=== PATIENT | female | born 1945 | race Caucasian/White ===

== ENCOUNTER 2016-06-24 07:15 | Day surgery (SDC) | payer MEDICARE ==
[~2016-06-24] VITALS: Ht 167.6 cm; Wt 89.1 kg
[2016-06-24] VITALS (9 sets, daily range): BP systolic 97–160; BP diastolic 35–73; PULSE 72–90; RESP 18–20; TEMP 97.7–98.3; O2SAT 92–100
[~2016-06-24 07:15] MED LIST: ECOT81TA2 PO; ENOX120P SQ; ENOX60P SQ; FURO1TAB93 PO; KCL10 PO; LANTINJ PO; MEDR10 PO; METO25 PO; OXYC1SOL5 PO; SYNT175T PO; TRAM50 PO
[2016-06-24] MEDS ORDERED: WARF-20 PO (07:44)
[2016-06-24] MEDS ORDERED: B COCAP PO (07:44)
[2016-06-24] MEDS ORDERED: LACTCAP8 PO (07:44)
[2016-06-24] MEDS ORDERED: SODIUM CHLOR 0.9% 1000 ML IV SCH (07:45)
[2016-06-24] MEDS ORDERED: LIDOCAINE 1%/EPINEPHrine 1:100,000 SOLN 20 ML VIAL ONE (08:29)
[2016-06-24 08:49] LABS: AUTOMATED NEUTROPHIL # 4.3 TH/MM3 (1.8-7.7); BASOPHIL # 0.1 TH/MM3 (0-0.2); BASOPHIL % 0.9 % (0.0-2.0); EOSINOPHIL # 0.5 TH/MM3 (0-0.4); EOSINOPHIL % 8.4 % (0.0-4.0); HEMO FLAGS DIFF FINAL; LYMPH % 11.7 % (9.0-44.0); LYMPHOCYTE # 0.7 TH/MM3 (1.0-4.8); MEAN CELL VOLUME 90.6 FL (80.0-100.0); MEAN CORPUSCULAR HEMOGLOBIN 29.6 PG (27.0-34.0); MEAN CORPUSCULAR HGB CONC 32.7 % (32.0-36.0); MONO % 7.5 % (0.0-8.0); NEUT % 71.5 % (16.0-70.0); PLATELET COUNT 245 TH/MM3 (150-450); RED BLOOD COUNT 3.98 MIL/MM3 (4.00-5.30); RED CELL DISTRIBUTION WIDTH 15.4 % (11.6-17.2)
[2016-06-24 09:01] LABS: PROTHROMBIN TIME - PATIENT 10.7 SEC (9.8-11.6)
[2016-06-24 09:02] LABS: APTT (PATIENT) 24.3 SEC (24.3-30.1)
[2016-06-24] MEDS ORDERED: MIDAZOLAM HCL 5 MG/5 ML VIAL ONE (10:48)
[2016-06-24] MEDS ORDERED: fentaNYL CITRATE 250 MCG/5 ML AMP ONE (10:48)
--- NOTE | 2016-06-24 13:24 | RADRPT ---
EXAM DATE/TIME: 06/24/2016 10:55 [facility] COMPARISON: No previous studies available for comparison. INDICATIONS : Multiple liver masses SEDATION TIME: 30 minutes BIOPSY SITE: Right lobe liver mass MEDICATION(S): 1.) 2 mg midazolam (Versed) IV 2.) 100 mcg fentanyl (Sublimaze) IV DEVICE(S): 1.) 18 gauge Temno core biopsy needle MEDICAL HISTORY : Diabetes mellitus type 1. endometrial cancer SURGICAL HISTORY : CABG Hysterectomy. ENCOUNTER: Initial ACUITY: 1 day PAIN SCORE: 0/10 LOCATION: abdomen A total of one core specimen(s) were obtained and sent to the laboratory for pathologic evaluation. PROCEDURE: 1. CT guided liver biopsy. 2. Conscious sedation with continuous EKG and oximetry monitoring. 3. EKG and oximetry remained stable throughout the procedure. Prior to the procedure informed consent was obtained. Any appropriate prior imaging studies were rev iewed. The site was prepped in a sterile fashion. Full sterile technique was used, including cap, mask, spencer rile gloves and gown and a large sterile sheet. Hand hygiene and 2% chlorhexidine and/or betadine/al cohol prep was utilized per protocol for cutaneous antisepsis. The skin and subcutaneous tissues wer e infiltrated with local anesthetic solution. With CT guidance the previously identified target was localized. Biopsy was performed using the presc ribed needle as above. Adequate hemostasis was obtained with compression at the puncture site. Follow-up CT scan reveals no hemorrhage. The patient tolerated the procedure well and there were no complications. The patient was returned to the Radiology Outpatient Unit in stable condition. CONCLUSION: Uncomplicated CT-guided 18 gauge core liver biopsy of right lobe lesion. Kevin Álvarez MD on June 24, 2016 at 13:21 Board Certified Radiologist. This report was verified electronically.
== END 2016-06-24 15:35 | disposition home or self-care (01) ==
LOC: HRAD 07:15 → HRIP 07:30 → HRAD 15:35
PROVIDERS: ATTEND Specialist
DX: C78.7 Secondary malignant neoplasm of liver and intrahepatic bile duct (principal); Z85.42 Personal history of malignant neoplasm of other parts of uterus; E10.9 Type 1 diabetes mellitus without complications; Z79.4 Long term (current) use of insulin; Z95.1 Presence of aortocoronary bypass graft
CPT/HCPCS: 47000; 77012; 85025; 85610; 85730; 88307; J2250; J3010

== ENCOUNTER 2016-06-29 13:26 | Emergency (ER) | payer MEDICARE ==
[~2016-06-29 13:26] MED LIST changes: +B COCAP PO; -ECOT81TA2 PO; -ENOX120P SQ; -ENOX60P SQ; -FURO1TAB93 PO; -KCL10 PO; +LACTCAP8 PO; -MEDR10 PO; -METO25 PO; -OXYC1SOL5 PO; -TRAM50 PO; +WARF-20 PO
[2016-06-29 13:28] VITALS: BP 116/58; PULSE 72; RESP 20; TEMP 97.7; O2SAT 95
[2016-06-29 14:08] VITALS: BP 122/75; PULSE 82; RESP 20; O2SAT 98
--- NOTE | 2016-06-29 14:10 | PD ---
HPI Chief Complaint: Respiratory Symptoms Time Seen by Provider: 14:04 Travel History International Travel<30 days: No Contact w/Intl Traveler<30days: No Traveled to known affect area: No History of Present Illness HPI 71-year-old female that presents to the ED for evaluation of shortness of breath for the past week. Per patient on Friday she had a biopsy of her liver for a possible met. Patient follows with Dr. Layne for this. She had to discontinue her Coumadin which she takes for cardiac disease as well as for PEs in the past a week before starting the procedure. She had had no symptoms since. Per patient she had some back pain from the surgery but other than that and that went away. Since Friday she's been feeling more weak and tired. Patient states that she feels short of breath and she has a pain on her left side that she's had a chronically for years but seems to becoming more severe this week. Family and was concerned because patient's weakness and shortness of breath seemed to be worsening as the days progressed and that anything they could wait until next week to see their doctor. Patient is taking her Coumadin currently. She restarted on Friday. She denies any fevers chills or sweats. No cough or runny nose. No history of COPD or bronchitis. She does have a history of open heart surgery and uterine cancer. From or medical records and review notes from last week where she had the biopsy or the oncologist apparently had some imaging that was done that showed that she my have metastases to the lungs as well as to the liver from possible cancer. The results of the biopsy are not back yet. Per patient her pain is minimal and is 3 out of 10 and gets worse when she gets a deep breath. Pain does not radiate. Patient cannot really tell me when she feels short of breath but per ' s symptoms like the shortness of breath comes and goes more when she exerts herself and also he has noted that whenever she ambulates for long period time. Patient also has a filter. PFSH Past Medical History Hx Anticoagulant Therapy: Yes (WARFARIN) Asthma: No Anxiety: No Depression: No Heart Rhythm Problems: No Cancer: Yes (uterine) Cardiovascular Problems: Yes High Cholesterol: Yes Chemotherapy: No Chest Pain: No Congestive Heart Failure: No COPD: No Diabetes: Yes Endocrine: Yes Genitourinary: Yes (occ uti,s) Hepatitis: No Hiatal Hernia: No Immune Disorder: No Musculoskeletal: Yes (arthritis in both hands) Neurologic: No Psychiatric: No Reproductive: Yes (uterine cancer) Respiratory: No Immunizations Current: No Radiation Therapy: No Sleep Apnea: No Thyroid Disease: Yes Past Surgical History AICD: No Body Medical Devices: blood clottting filter, blood clot left leg x1 cardiac stent Cardiac Surgery: Yes (triple cardiac by-pass x1 cardiac stent clotting filter placement) Gynecologic Surgery: Yes (hysterectomy) Hysterectomy: Yes Joint Replacement: No Pacemaker: No Social History Alcohol Use: No Tobacco Use: No Substance Use: No Allergies-Medications (Allergen,Severity, Reaction): Coded Allergies: Penicillin (Verified Allergy, Severe, SWELLING, 06/29/16) Reported Meds & Prescriptions Reported Meds & Active Scripts Active Reported Probiotic (Lactobacillus Acidophilus) 1 Cap Cap 1 Cap PO DAILY B Complex/Vitamin C (B Complex W/ C) 1 Cap Cap 1 Tab PO DAILY Warfarin 4 Mg Tab 4 Mg PO DAILY Lantus For Opticlik 30 Units PO HS Synthroid 175 mcg (Levothyroxine Sodium) 175 Mcg Tab 175 Mcg PO DAILY Review of Systems General / Constitutional: No: Fever, Chills, Weight Gain, Weight Loss, Other Eyes: No: Diploplia, Blurred Vision, Photophobia, Drainage, Redness, Foreign Body Sensation, Pain, Tearing, Blind Spots, Visual changes, Blindness, Other HENT: No: Headaches, Vertigo, Lightheadedness, Sore Throat, Rhinitis, Rhinorrhea, Congestion, Nosebleed, Neck Stiffness, Neck Pain, Masses, Gingival Bleeding, Dental Difficulties, Ear Discharge, Earache, Other Cardiovascular: Positive: Chest Pain or Discomfort, No: Palpitations, Irregular Rhythm, Tachycardia, Diaphoresis, Syncope, Dyspnea on exertion, Varicosities, Edema, Cyanosis, Varicosities, Phlebitis, Claudication, Other Respiratory: Positive: Shortness of Breath, No: Cough, Wheezing, Sneezing, Orthopnea, Hemoptysis, Stridor, Night Sweats, Pleuritic Pain, Other Gastrointestinal: No: Nausea, Vomiting, Diarrhea, Abdominal Pain, Hematemesis, Hematochezia, Constipation, Changes in Bowel Habits, Indigestion, Dysphagia, Loss of Appetite, Other Genitourinary: No: Urgency, Frequency, Dysuria, Nocturia, Hematuria, Decreased Urinary Output, Oliguria, Hesitancy, Dribbling, Incontinence, Pelvic Pain, Flank Pain, Dyspareunia, Discharge, Dysmenorrhea, Menorrhagia, Metorrhagia, Vaginal Bleeding, Other Musculoskeletal: No: Myalgias, Arthralgias, Limited ROM, Weakness, Cramping, Edema, Pain, Atrophy, Other Skin: No Rash, No Itching, No Dryness, No Lumps, No Hives, No Change in Pigmentation, No Change in nails, No Alopecia, No Lesions, No Breast Lumps, No Breast Tenderness, No Breast Swelling, No Other Neurologic: No: Weakness, Dizziness, Syncope, Focal Abnormalities, Coordination Problem, Tremor, Ataxia, Headache, Change in Mentation, Slurred Speech, Paresthesia, Incontinence, Seizures, Sensory Disturbance, Other Psychiatric: No: Anxiety, Depression, Suicidal Ideations, Disorder of Thought, Mood Disorder, Substance Abuse, Homicidal Ideation, Other Endocrine: No: Heat Intolerance, Cold Intolerance, Polyuria, Polydipsia, Other Hematologic/Lymphatic: No: Easy Bruising, Lymph Node Enlargement, Other Physical Exam Narrative GENERAL: SKIN: Warm and dry. HEAD: Atraumatic. Normocephalic. EYES: Pupils equal and round. No scleral icterus. No injection or drainage. ENT: No nasal bleeding or discharge. Mucous membranes pink and moist. Tongue is midline. No uvula deviation. NECK: Trachea midline. No JVD. CARDIOVASCULAR: Regular rate and rhythm. No murmurs, S3, S4. RESPIRATORY: No accessory muscle use. Clear to auscultation. Breath sounds equal bilaterally. GASTROINTESTINAL: Abdomen soft, non-tender, nondistended. Hepatic and splenic margins not palpable. MUSCULOSKELETAL: Extremities without clubbing, cyanosis, or edema. No obvious deformities. Full range of motion of the upper and lower extremities bilaterally. 2+ pulses bilaterally. NEUROLOGICAL: Awake and alert. No obvious cranial nerve deficits. Motor grossly within normal limits. Five out of 5 muscle strength in the arms and legs. Normal speech. PSYCHIATRIC: Appropriate mood and affect; insight and judgment normal. Data Data Last Documented VS Vital Signs Date Time Temp Pulse Resp B/P Pulse Ox O2 Delivery O2 Flow Rate FiO2 06/29/16 14:08 82 20 122/75 98 Room Air 06/29/16 13:28 97.7 Orders Electrocardiogram (06/29/16 13:55) Complete Blood Count With Diff (06/29/16 13:55) Comprehensive Metabolic Panel (06/29/16 13:55) Ckmb (Isoenzyme) Profile (06/29/16 13:55) Troponin I (06/29/16 13:55) Prothrombin Time / Inr (Pt) (06/29/16 13:55) Act Partial Throm Time (Ptt) (06/29/16 13:55) Chest, Single Ap (06/29/16 13:55) Iv Access Insert/Monitor (06/29/16 13:55) Ecg Monitoring (06/29/16 13:55) Oximetry (06/29/16 13:55) Ct Pulmonary Angiogram (06/29/16 13:55) Iohexol 350 Inj (Omnipaque 350 Inj) (06/29/16 15:39) Labs Laboratory Tests Test 06/29/16 14:13 White Blood Count 5.5 TH/MM3 Red Blood Count 3.95 MIL/MM3 Hemoglobin 12.0 GM/DL Hematocrit 35.1 % Mean Corpuscular Volume 88.9 FL Mean Corpuscular Hemoglobin 30.5 PG Mean Corpuscular Hemoglobin 34.3 % Concent Red Cell Distribution Width 15.3 % Platelet Count 233 TH/MM3 Mean Platelet Volume 8.2 FL Neutrophils (%) (Auto) 72.6 % Lymphocytes (%) (Auto) 13.4 % Monocytes (%) (Auto) 7.3 % Eosinophils (%) (Auto) 6.0 % Basophils (%) (Auto) 0.7 % Neutrophils # (Auto) 4.0 TH/MM3 Lymphocytes # (Auto) 0.7 TH/MM3 Monocytes # (Auto) 0.4 TH/MM3 Eosinophils # (Auto) 0.3 TH/MM3 Basophils # (Auto) 0.0 TH/MM3 CBC Comment DIFF FINAL Differential Comment Prothrombin Time 15.3 SEC Prothromb Time International 1.4 RATIO Ratio Activated Partial 28.4 SEC Thromboplast Time Sodium Level 139 MEQ/L Potassium Level 4.5 MEQ/L Chloride Level 101 MEQ/L Carbon Dioxide Level 29.1 MEQ/L Anion Gap 9 MEQ/L Blood Urea Nitrogen 27 MG/DL Creatinine 1.08 MG/DL Estimat Glomerular Filtration 50 ML/MIN Rate Random Glucose 157 MG/DL Calcium Level 10.3 MG/DL Total Bilirubin 0.3 MG/DL Aspartate Amino Transf 29 U/L (AST/SGOT) Alanine Aminotransferase 20 U/L (ALT/SGPT) Alkaline Phosphatase 130 U/L Total Creatine Kinase 57 U/L Troponin I 0.04 NG/ML Total Protein 7.7 GM/DL Albumin 3.6 GM/DL MDM Medical Decision Making Medical Screen Exam Complete: Yes Emergency Medical Condition: Yes Medical Record Reviewed: Yes Interpretation(s) CBC & BMP Diagram 06/29/16 14:13 Coags with an INR of 1.5. EKG shows sinus rhythm with no sign of acute ischemia or arrhythmia. Troponin and CK-MB negative. LFTs within normal limits. Last Impressions Chest X-Ray 06/29/16 [id number] Signed Impressions: Service Date/Time: Wednesday, June 29, 2016 14:13 - CONCLUSION: No acute disease. Cardiomegaly and CABG. Art Roldan MD CT Angiography 06/29/16 1411 Signed Impressions: Service Date/Time: Wednesday, June 29, 2016 15:36 - CONCLUSION: 1. Negative for pulmonary embolism. 2. Metastatic disease to the thorax and liver with reported history of uterine cancer. Jose Miguel Sharma MD Differential Diagnosis Pulmonary embolism versus chest pain versus a typical chest pain versus pleurisy versus metastatic disease versus COPD versus STEMI versus NSTEMI versus anemia Narrative Course 71-year-old female that presents to the ED for evaluation of shortness of breath. Patient was properly examined and was found to have signs and symptoms consistent with appears to be shortness of breath. Patient does have risk factors for heart disease as well as PE. Patient was offered for committing and has a filter in place which makes PE less likely but she still has a risk factor having metastases to the lung and liver. I still feel that patient requires more imaging to rule out PE as well as heart disease. Patient is agreeable with this. Labs and imaging were ordered. Labs and imaging showed metastatic disease but otherwise unremarkable. No sign of STEMI. No sign of PE. Patient's vitals and physical exam are reassuring at this time. Do not believe the patient requires admission. I discussed this with my attending Dr. Sarah who agrees with plan. Patient will be sent home with results of the labs as well as the CAT scans to follow up with his oncologist for further workup. Patient does have what appears to be metastatic disease from her uterine cancer. She has 2 metastases on the lungs and I believe that this may be one of the reasons that she is having more shortness of breath. She was told this and agrees with plan. She was instructed to take Tylenol for pain as needed. Warm compresses. See ED worsening symptoms. Follow with PCP. Diagnosis Primary Impression: Metastasis Qualified Code: C78.01 - Malignant neoplasm metastatic to right lung Additional Impression: SOB (shortness of breath) on exertion Patient Instructions: General Instructions Additional Instructions: Follow with PCP this week. See ED if any worsening symptoms. Follow-up with your oncologist. Take Tylenol for pain as needed. Warm compresses as needed. Med/Other Pt SpecificInfo: No Meds Exist/No RX given Disposition: DISCHARGE HOME Condition: Stable Boone Griffiths Jun 29, 2016 14:10
--- NOTE | 2016-06-29 14:29 | RADRPT ---
EXAM DATE/TIME: 06/29/2016 14:13 [facility] COMPARISON: CHEST SINGLE AP, September 07, 2015, 4:26. INDICATIONS : Shortness of breath and dizziness. MEDICAL HISTORY : Myocardial infarction. SURGICAL HISTORY : Coronary artery stent. IVC filter placement. CABG. ENCOUNTER: Initial ACUITY: 3 weeks PAIN SCORE: 0/10 LOCATION: chest FINDINGS: A single view of the chest demonstrates the lungs to be symmetrically aerated without evidence of mas s, infiltrate or effusion. Cardiomegaly and CABG. The cardiomediastinal contours are unremarkable. Osseous structures are intact. CONCLUSION: No acute disease. Cardiomegaly and CABG. Art Roldan MD on June 29, 2016 at 14:27 Board Certified Radiologist. This report was verified electronically.
[2016-06-29 14:31] LABS: BASOPHIL % 0.7 % (0.0-2.0); EOSINOPHIL # 0.3 TH/MM3 (0-0.4); HEMATOCRIT 35.1 % (35.0-46.0); HEMO FLAGS DIFF FINAL; LYMPH % 13.4 % (9.0-44.0); LYMPHOCYTE # 0.7 TH/MM3 (1.0-4.8); MEAN CELL VOLUME 88.9 FL (80.0-100.0); MEAN CORPUSCULAR HEMOGLOBIN 30.5 PG (27.0-34.0); MEAN CORPUSCULAR HGB CONC 34.3 % (32.0-36.0); MONO % 7.3 % (0.0-8.0); NEUT % 72.6 % (16.0-70.0); PLATELET COUNT 233 TH/MM3 (150-450); RED BLOOD COUNT 3.95 MIL/MM3 (4.00-5.30); RED CELL DISTRIBUTION WIDTH 15.3 % (11.6-17.2); WHITE BLOOD COUNT 5.5 TH/MM3 (4.0-11.0)
[2016-06-29 14:45] LABS: APTT (PATIENT) 28.4 SEC (24.3-30.1); INTERNATIONAL NORMALIZED RATIO 1.4 RATIO; PROTHROMBIN TIME - PATIENT 15.3 SEC (9.8-11.6)
[2016-06-29 14:46] LABS: ANION GAP 9 MEQ/L (5-15); AST (GOT) 29 U/L (15-37); BICARBONATE 29.1 MEQ/L (21.0-32.0); BLOOD UREA NITROGEN 27 MG/DL (7-18); CHLORIDE 101 MEQ/L (98-107); GLOMERULAR FILTRATION RATE 50 ML/MIN (>89); POTASSIUM 4.5 MEQ/L (3.5-5.1); SODIUM (NA) 139 MEQ/L (136-145)
[2016-06-29 14:51] LABS: ALKALINE PHOSPHATASE 130 U/L (45-117); ALT (GPT) 20 U/L (10-53); TOTAL BILIRUBIN ADULT 0.3 MG/DL (0.2-1.0)
[2016-06-29 15:03] LABS: CREATINE KINASE 57 U/L (26-192)
[2016-06-29] MEDS ORDERED: IOHEXOL 350 MG/ML 10 ML VIAL (for RAD DIAG) IV ONE (15:39)
--- NOTE | 2016-06-29 15:59 | RADRPT ---
EXAM DATE/TIME: 06/29/2016 15:36 [facility] COMPARISON: No previous studies available for comparison. INDICATIONS : Shortness of breath for one week. IV CONTRAST: 75 cc Omnipaque 350 (iohexol) IV RADIATION DOSE: 23.28 CTDIvol (mGy) MEDICAL HISTORY : Cardiovascular disease. Diabetes mellitus type 2. Uterine cancer, pulmonary embolism. SURGICAL HISTORY : CABG Coronary artery stent.IVC Filter placement. ENCOUNTER: Initial ACUITY: 1 week PAIN SCALE: 0/10 LOCATION: chest TECHNIQUE: Volumetric scanning of the chest was performed using a pulmonary embolism protocol MIP images were re constructed. Using automated exposure control and adjustment of the mA and/or kV according to patien t size, radiation dose was kept as low as reasonably achievable to obtain optimal diagnostic quality images. FINDINGS: No filling defects identified to suggest pulmonary embolic disease. There is metastatic disease to th e lungs with multiple bilateral lung nodules measuring up to 1.8 cm in the right lower lobe. There is a lobulated 3.8 cm mass in the anterior left upper lobe with some associated chest wall invasion. Nu merous large liver masses are present. No pleural or pericardial effusion. Previous CABG. CONCLUSION: 1. Negative for pulmonary embolism. 2. Metastatic disease to the thorax and liver with reported history of uterine cancer. Jose Miguel Sharma MD on June 29, 2016 at 15:53 Board Certified Radiologist. This report was verified electronically.
--- NOTE | 2016-06-30 13:40 | EKG ---
Date Performed: 06/29/2016 Time Performed: 14:19:11 PTAGE: 71 years EKG: Sinus rhythm MODERATE T-WAVE ABNORMALITY, CONSIDER LATERAL ISCHEMIA Compared to previous tracing, lateral T waves are more prominent, consider ischemia ABNORMAL ECG PREVIOUS TRACING : 09/05/2015 04.27 DOCTOR: Garry Lara Interpretating Date/Time 06/30/2016 13:39:36
== END 2016-06-29 17:25 | disposition home or self-care (01) ==
LOC: NEPE 13:26
DX: C78.01 Secondary malignant neoplasm of right lung (principal); I51.7 Cardiomegaly; E78.00 Pure hypercholesterolemia, unspecified; E11.9 Type 2 diabetes mellitus without complications; Z95.1 Presence of aortocoronary bypass graft; Z79.01 Long term (current) use of anticoagulants
CPT/HCPCS: 71010; 71275; 80053; 82550; 84484; 85025; 85610; 85730; 93005; 99284; Q9967

== ENCOUNTER 2016-07-16 06:38 | Day surgery (SDC) | payer MEDICARE ==
[~2016-07-16] VITALS: Ht 165.1 cm; Wt 87.3 kg
[2016-07-16 06:57] VITALS: BP 184/82; PULSE 77; RESP 20; TEMP 98.1; O2SAT 97
[2016-07-16] MEDS ORDERED: SYNT175T PO (07:01)
[2016-07-16] MEDS ORDERED: LANTUS2P SQ (07:01)
[2016-07-16 07:38] LABS: AUTOMATED NEUTROPHIL # 3.5 TH/MM3 (1.8-7.7); BASOPHIL # 0.1 TH/MM3 (0-0.2); EOSINOPHIL # 0.3 TH/MM3 (0-0.4); EOSINOPHIL % 5.7 % (0.0-4.0); HEMATOCRIT 34.9 % (35.0-46.0); HEMO FLAGS DIFF FINAL; LYMPH % 15.4 % (9.0-44.0); LYMPHOCYTE # 0.8 TH/MM3 (1.0-4.8); MEAN CELL VOLUME 89.2 FL (80.0-100.0); MEAN CORPUSCULAR HEMOGLOBIN 29.8 PG (27.0-34.0); MEAN CORPUSCULAR HGB CONC 33.5 % (32.0-36.0); MONO % 9.8 % (0.0-8.0); NEUT % 68.1 % (16.0-70.0); PLATELET COUNT 212 TH/MM3 (150-450); RED BLOOD COUNT 3.91 MIL/MM3 (4.00-5.30); RED CELL DISTRIBUTION WIDTH 14.9 % (11.6-17.2); WHITE BLOOD COUNT 5.2 TH/MM3 (4.0-11.0)
[2016-07-16 07:42] LABS: PROTHROMBIN TIME - PATIENT 11.2 SEC (9.8-11.6)
[2016-07-16 07:43] LABS: APTT (PATIENT) 23.3 SEC (24.3-30.1)
[2016-07-16] MEDS ORDERED: MIDAZOLAM HCL 5 MG/5 ML VIAL ONE (07:53)
[2016-07-16] MEDS ORDERED: fentaNYL CITRATE 250 MCG/5 ML AMP ONE (07:53)
[2016-07-16] MEDS ORDERED: VANCOMYCIN 1000 MG/NS 250 ML - implanted port/tunneled catheter IV SCH ×2 (08:00)
[2016-07-16] MEDS ORDERED: CHLORHEXIDINE GLUCONATE 2 % 1 PACK (2 CLOTHS) TOPICAL SCH (08:00)
[2016-07-16] MEDS ORDERED: SODIUM CHLORIDE 0.9% 1000 ML IV SCH (08:00)
[2016-07-16] MEDS ORDERED: POVIDONE IODINE 5% (ANTISEPSIS KIT) 4 APPLICATIONS EACH NARE SCH (08:00)
[2016-07-16] MEDS ORDERED: LIDOCAINE 1%/EPINEPHrine 1:100,000 SOLN 20 ML VIAL ONE (08:21)
--- NOTE | 2016-07-16 08:55 | PD.RAD ---
Post Procedure Progress Note Pre Procedure Diagnosis: (1) Metastasis (2) Uterine cancer Post Procedure Diagnosis: (1) Metastasis (2) Uterine cancer Procedure Date: Jul 16, 2016 Supervising Radiologist: Mao Ro Anesthesia: Local, Conscious Sedation Plan of Activity Patient to Unit: ROPU Patient Condition: Good Additional Comments: Port placed via the right IJ. Port in good position OK for use See PACS Report for procedural detail/treatment Mao Ro MD Jul 16, 2016 08:55
[2016-07-16 09:00] VITALS: BP 177/79; PULSE 98; RESP 18; TEMP 97.8; O2SAT 94
[2016-07-16] MEDS ORDERED: SODIUM CHLORIDE 0.9% FLUSH 5 ML FLUSH IVF PRN (09:00)
[2016-07-16 09:15] VITALS: BP 150/71; PULSE 92; RESP 18; O2SAT 94
[2016-07-16 09:45] VITALS: BP 151/67; PULSE 78; RESP 18; O2SAT 93
[2016-07-16 10:15] VITALS: BP 147/65; PULSE 89; RESP 18; O2SAT 95
[2016-07-16 10:45] VITALS: BP 127/68; PULSE 85; RESP 16; O2SAT 92
--- NOTE | 2016-07-16 13:31 | RADRPT ---
EXAM DATE/TIME: 07/16/2016 08:34 [facility] COMPARISON: No previous studies available for comparison. INDICATIONS : Patient with a history of endometrial cancer, needs chemotherapy. MEDICAL HISTORY : Blood clots(vaginal) Cardiovascular disease Coronary artery disease Diabetes type II Endometrial cancer GA thyroid disease SURGICAL HISTORY : [place] filter Coronary artery bypass Endometrial biopsy Hysterectomy Coronary stent ENCOUNTER: Initial ACUITY: 2 months PAIN SCORE: 3/10 LOCATION: Lower back and neck FLUORO TIME: 0.7 minutes SEDATION TIME: 30 minutes ACCESS: Right internal jugular vein SEDATION: 1.) 2.5 mg midazolam (Versed) IV 2.) 125 mcg fentanyl (Sublimaze) IV Prophylactic antibiotics were administered with appropriate pre-procedure timing. Vancomycin within 2 hours of procedure, Ancef (or alternative) within 1 hour of procedure. DEVICE: 1. 8 [place] single lumen Bard Power Port PROCEDURE : 1. Continuous pulse oximetry and EKG monitoring. 2. Intravenous conscious sedation. 3. Ultrasound guidance for venous access. 4. Fluoroscopic guided implantable central venous port placement. The patient was placed supine. The neck was prepped in sterile fashion. Full sterile technique was u sed, including cap, mask, sterile gloves and gown, and a large sterile sheet. Hand hygiene and 2% ch lorhexidine Betadine was utilized per protocol for cutaneous antisepsis with appropriate dry time for site. The skin and subcutaneous tissues were infiltrated with local anesthetic solution. Under direct ultrasound guidance, central venous access was accomplished in the targeted vessel. The ultrasound images depicting access guidance were stored and saved to PACS for permanent record. A s ubcutaneous pocket was created using blunt dissection. The port was introduced to the pocket. The c atheter tubing was fed through a subcutaneous tunnel to the venotomy site. The catheter tubing was c ut to a suitable length and then was introduced through a valved Peel-Away sheath and positioned with catheter tubing tip at the cavo-atrial junction level. The pocket incision was closed with subcutic ular Vicryl suture. Steri-Strips were applied. The port was flushed and locked with heparin solutio n per protocol. Sterile dressing was applied to the site. The patient tolerated the procedure well. Conscious sedation was performed with the prescribed dosages and duration as above. The patient jaspreet ated the procedure well and there were no complications. EKG and oximetry remained stable throughout the procedure. The patient was sent to post anesthesia recovery in stable condition. CONCLUSION: Uncomplicated ultrasound and fluoroscopic guided implanted central venous port catheter placement as described in detail above. An 8 [place] Power port was placed. Mao Ro MD on July 16, 2016 at 13:30 Board Certified Radiologist. This report was verified electronically.
== END 2016-07-16 11:10 | disposition home or self-care (01) ==
LOC: HROP 06:38 → HRIP 06:39 → HROP 11:10
PROVIDERS: ATTEND Obstetrics & Gynecology Gynecologic Oncology
DX: Z45.2 Encounter for adjustment and management of vascular access device (principal); C54.1 Malignant neoplasm of endometrium; C55 Malignant neoplasm of uterus, part unspecified; E07.9 Disorder of thyroid, unspecified; E11.9 Type 2 diabetes mellitus without complications; I25.10 Atherosclerotic heart disease of native coronary artery without angina pectoris; I25.2 Old myocardial infarction; Z95.1 Presence of aortocoronary bypass graft; Z79.01 Long term (current) use of anticoagulants
CPT/HCPCS: 36561; 76937; 77001; 85025; 85610; 85730; 99152; 99153; C1788; J1642; J2250; J3010; J3370; J7030; J7050

== ENCOUNTER 2016-09-29 16:05 | Emergency (ER) | payer MEDICARE ==
[~2016-09-29] VITALS: Ht 167.6 cm; Wt 85.5 kg
[~2016-09-29 16:05] MED LIST changes: -LANTINJ PO; +LANTUS2P SQ
[2016-09-29 16:08] VITALS: BP 134/74; PULSE 73; RESP 16; TEMP 98.9; O2SAT 99
[2016-09-29 16:20] VITALS: BP 139/74; PULSE 90; RESP 16; O2SAT 95
--- NOTE | 2016-09-29 16:30 | PD ---
HPI Chief Complaint: Facial Pain or Swelling Time Seen by Provider: 16:27 Travel History International Travel<30 days: No Contact w/Intl Traveler<30days: No Traveled to known affect area: No History of Present Illness HPI 71-year-old female presents to the emergency department for evaluation of left facial swelling. Her states that he noticed some white facial swelling on Friday, but it worsened last night. Patient is undergoing chemotherapy for metastatic uterine cancer. She had her fourth chemotherapy treatment on Friday , 2 days ago. She reports feeling weak today. She's had no fevers or chills. She states the swelling is painful. She denies any chest pain or shortness of breath. No abdominal pain. No vomiting. 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 She is currently on Coumadin. PFSH Past Medical History Hx Anticoagulant Therapy: Yes (COUMADIN) Asthma: No Anxiety: No Depression: No Heart Rhythm Problems: No Cancer: Yes (uterine WITH METS) Cardiovascular Problems: Yes (TRIPLE BYPASS 09/01) High Cholesterol: Yes Chemotherapy: Yes (09/27/16) Chest Pain: No Congestive Heart Failure: No COPD: No Diabetes: Yes Diminished Hearing: No Endocrine: Yes Genitourinary: Yes (occ uti,s) Hepatitis: No Hiatal Hernia: No Immune Disorder: No Musculoskeletal: Yes (arthritis in both hands) Neurologic: No Psychiatric: No Reproductive: Yes (uterine cancer) Respiratory: No Immunizations Current: No Radiation Therapy: No Sleep Apnea: No Thyroid Disease: Yes Past Surgical History AICD: No Body Medical Devices: blood clottting filter, blood clot left leg x1 cardiac stent Cardiac Surgery: Yes (triple cardiac by-pass x1 cardiac stent clotting filter placement) Gynecologic Surgery: Yes (hysterectomy) Hysterectomy: Yes Joint Replacement: No Pacemaker: No Other Surgery: Yes Social History Alcohol Use: No Tobacco Use: No Substance Use: No Allergies-Medications (Allergen,Severity, Reaction): Coded Allergies: Penicillin (Verified Allergy, Severe, SWELLING, 09/29/16) Reported Meds & Prescriptions Reported Meds & Active Scripts Active Clindamycin (Clindamycin HCl) 300 Mg Cap 300 Mg PO Q6H 10 Days Reported Lantus Inj (Insulin Glargine) 1,000 Unit/10 Ml Vial 30 Units SQ HS Synthroid (Levothyroxine Sodium) 175 Mcg Tab 175 Mcg PO HS Probiotic (Lactobacillus Acidophilus) 1 Cap Cap 1 Cap PO HS B Complex/Vitamin C (B Complex W/ C) 1 Cap Cap 1 Tab PO HS Warfarin 4 Mg Tab 3 Mg PO HS Review of Systems Except as stated in HPI: all other systems reviewed are Neg Physical Exam Narrative GENERAL: Well-nourished, well-developed female patient, afebrile. SKIN: Focused skin assessment warm/dry. HEAD: Normocephalic. Patient has large left facial swelling. ENT: Mucosa pink and moist. No erythema or exudates. No uvular edema. No uvular , palatal, or tonsillar deviation. Airway patent. Nasal turbinates appear normal without nasal blood, purulent drainage or septal hematoma. Patient has tenderness to palpation over tooth #12, 13, 14. EYES: No scleral icterus. No injection or drainage. NECK: Supple, trachea midline. No JVD or lymphadenopathy. CARDIOVASCULAR: Regular rate and rhythm without murmurs, gallops, or rubs. RESPIRATORY: Breath sounds equal bilaterally. No accessory muscle use. Lungs sounds are clear to auscultation GASTROINTESTINAL: Abdomen soft, non-tender, nondistended. MUSCULOSKELETAL: No cyanosis, or edema. BACK: Nontender without obvious deformity. No CVA tenderness. Data Data Last Documented VS Vital Signs Date Time Temp Pulse Resp B/P Pulse Ox O2 Delivery O2 Flow Rate FiO2 09/29/16 18:27 88 12 132/61 100 Room Air 2 09/29/16 16:08 98.9 Orders Iv Access Insert/Monitor (09/29/16 16:25) Complete Blood Count With Diff (09/29/16 16:25) Basic Metabolic Panel (Bmp) (09/29/16 16:25) Act Partial Throm Time (Ptt) (09/29/16 16:25) Prothrombin Time / Inr (Pt) (09/29/16 16:25) Ct Soft Tiss Neck W Iv Cont (09/29/16 ) Morphine Inj (Morphine Inj) (09/29/16 16:45) Ondansetron Inj (Zofran Inj) (09/29/16 17:00) Sodium Chlor 0.9% 1000 Ml Inj (Ns 1000 M (09/29/16 17:00) Iohexol 350 Inj (Omnipaque 350 Inj) (09/29/16 17:51) Clindamycin Inj (Cleocin Inj) (09/29/16 18:30) Labs Laboratory Tests Test 09/29/16 16:44 White Blood Count 7.6 TH/MM3 Red Blood Count 3.02 MIL/MM3 Hemoglobin 9.3 GM/DL Hematocrit 27.7 % Mean Corpuscular Volume 91.9 FL Mean Corpuscular Hemoglobin 30.8 PG Mean Corpuscular Hemoglobin 33.5 % Concent Red Cell Distribution Width 20.0 % Platelet Count 123 TH/MM3 Mean Platelet Volume 8.8 FL Neutrophils (%) (Auto) 91.4 % Lymphocytes (%) (Auto) 5.0 % Monocytes (%) (Auto) 3.0 % Eosinophils (%) (Auto) 0.2 % Basophils (%) (Auto) 0.4 % Neutrophils # (Auto) 7.0 TH/MM3 Lymphocytes # (Auto) 0.4 TH/MM3 Monocytes # (Auto) 0.2 TH/MM3 Eosinophils # (Auto) 0.0 TH/MM3 Basophils # (Auto) 0.0 TH/MM3 CBC Comment DIFF FINAL Differential Comment Prothrombin Time 26.8 SEC Prothromb Time International 2.3 RATIO Ratio Activated Partial 36.7 SEC Thromboplast Time Sodium Level 139 MEQ/L Potassium Level 4.1 MEQ/L Chloride Level 103 MEQ/L Carbon Dioxide Level 29.2 MEQ/L Anion Gap 7 MEQ/L Blood Urea Nitrogen 19 MG/DL Creatinine 0.56 MG/DL Estimat Glomerular Filtration 107 ML/MIN Rate Random Glucose 134 MG/DL Calcium Level 8.8 MG/DL [facility] Medical Decision Making Medical Screen Exam Complete: Yes Emergency Medical Condition: Yes Medical Record Reviewed: Yes Interpretation(s) ct soft tissue neck - CONCLUSION: Apparent inflammatory changes right face with a very small fluid collection evident as described above. Differential Diagnosis Dental abscess versus cellulitis versus Jonathan angina Narrative Course 71-year-old female presents to the emergency department for evaluation of left facial swelling. Patient is undergoing chemotherapy for metastatic uterine cancer. She denies any fevers, but reports increased weakness today. CBC, BMP , PTT, PTT/INR ordered and pending. CT of the soft tissue neck with IV contrast is ordered and pending. CBC shows normal WBC of 7.6. BMP shows no acute abnormality. PTT is 36.7. PT/ INR is 26.8/2.3. CT soft tissue neck shows apparent inflammatory changes right face with a very small fluid collection evident as described above. I discussed the case with my attending physician, Dr. Love. She agrees with plan and disposition. Patient is given clindamycin 600 mg IV. She'll be discharged prescription for clindamycin. She is to follow-up with her dentist. She is to return immediately for any worsening symptoms including fever. She verbalizes agreement with this. Her is concerned she could have her Neulasta shot tomorrow. I instructed him to contact her oncologist before getting the medication to make sure. Her verbalizes agreement. Diagnosis Primary Impression: Dental abscess Referrals: Dentist Patient Instructions: Dental Abscess (ED), General Instructions Additional Instructions: Take clindamycin as directed until gone. Take Lortab as instructed as needed for pain. Caution this can make you drowsy so do not drive after taking. Follow-up with a dentist. Return to the emergency department immediately for any worsening symptoms. Med/Other Pt SpecificInfo: Prescription(s) given Scripts Hydrocodone-Acetaminophen (Lortab)5-325 Mg Tab1 Tab PO Q6H PRN (PAIN) #16 TAB Ref 0 Prov:Cecilia Love MD 09/29/16 Clindamycin 300 Mg Umc196 Mg PO Q6H 10 Days Ref 0 Prov:Mony Conklin 09/29/16 Disposition: 01 DISCHARGE HOME Condition: Stable Mony Conklin September 29, 2016 16:30
[2016-09-29] MEDS ORDERED: MORPHINE SULFATE 4 MG/ML INJ IV PUSH ONE (16:45)
[2016-09-29 16:59] VITALS: BP_SYST 86; BP_SYST 93; BP_DIAS 47; BP_DIAS 51; PULSE 80; RESP 16; O2SAT 97
[2016-09-29] MEDS ORDERED: SODIUM CHLOR 0.9% 1000 ML INJ 1,000 ML IV ONE (17:00)
[2016-09-29] MEDS ORDERED: ONDANSETRON HCL 4 MG/2 ML VIAL IV PUSH ONE (17:00)
[2016-09-29 17:02] LABS: BASOPHIL % 0.4 % (0.0-2.0); EOSINOPHIL % 0.2 % (0.0-4.0); HEMATOCRIT 27.7 % (35.0-46.0); HEMO FLAGS DIFF FINAL; LYMPHOCYTE # 0.4 TH/MM3 (1.0-4.8); MEAN CELL VOLUME 91.9 FL (80.0-100.0); MEAN CORPUSCULAR HEMOGLOBIN 30.8 PG (27.0-34.0); MEAN CORPUSCULAR HGB CONC 33.5 % (32.0-36.0); NEUT % 91.4 % (16.0-70.0); PLATELET COUNT 123 TH/MM3 (150-450); RED BLOOD COUNT 3.02 MIL/MM3 (4.00-5.30); WHITE BLOOD COUNT 7.6 TH/MM3 (4.0-11.0)
[2016-09-29 17:17] LABS: APTT (PATIENT) 36.7 SEC (24.3-30.1); INTERNATIONAL NORMALIZED RATIO 2.3 RATIO; PROTHROMBIN TIME - PATIENT 26.8 SEC (9.8-11.6)
[2016-09-29 17:21] LABS: BICARBONATE 29.2 MEQ/L (21.0-32.0); POTASSIUM 4.1 MEQ/L (3.5-5.1)
[2016-09-29 17:23] VITALS: BP 126/58; PULSE 83; RESP 16; O2SAT 97
[2016-09-29] MEDS ORDERED: IOHEXOL 350 MG/ML 10 ML VIAL (for RAD DIAG) IV ONE (17:51)
--- NOTE | 2016-09-29 18:02 | RADRPT ---
EXAM DATE/TIME: 09/29/2016 17:40 CORRECTION Corrected on: October 03, 2016; [facility] COMPARISON: No previous studies available for comparison. INDICATIONS : Left-sided facial swelling. IV CONTRAST: 75 cc Omnipaque 350 (iohexol) IV RADIATION DOSE: 15.60 CTDIvol (mGy) MEDICAL HISTORY : Cardiovascular disease. Carcinoma, not otherwise specified. SURGICAL HISTORY : Hysterectomy. ENCOUNTER: Initial ACUITY: 1 day PAIN SCALE: 4/10 LOCATION: Bilateral neck TECHNIQUE: Volumetric scanning of the neck was performed. Using automated exposure control and a djustment of the mA and/or kV according to patient size, radiation dose was kept as low as reasonably achievable to obtain optimal diagnostic quality images. FINDINGS: There is soft-tissue swelling associated with the left side of the maxilla. A small fluid collection is evident. This is visualized because of moderate dental artifact. The small fluid collection is right at the angle of the nose. Subcutaneous edema is present. The right neck is unremarkable. The low neck appears normal. CONCLUSION: Apparent inflammatory changes left face with a very small fluid collection evident as described above . Vazquez Ro MD FACR on September 29, 2016 at 17:57 Board Certified Radiologist. This report was verified electronically. Vazquez Ro MD FACR on October 03, 2016 at 18:30 Board Certified Radiologist. This report was verified electronically.
[2016-09-29 18:27] VITALS: BP 132/61; PULSE 88; RESP 12; O2SAT 100
[2016-09-29] MEDS ORDERED: CLINDAMYCIN INJ 600 MG in SODIUM CHLORIDE 0.9% INJ 100 ML IV ONE (18:30)
[2016-09-29] MEDS ORDERED: HYDR-3533 PO (18:38)
[2016-09-29] MEDS ORDERED: CLIN1CAP6 PO (18:38)
== END 2016-09-29 19:21 | disposition home or self-care (01) ==
LOC: NEPC 16:05
DX: K04.7 Periapical abscess without sinus (principal); E78.00 Pure hypercholesterolemia, unspecified; E11.9 Type 2 diabetes mellitus without complications; Z86.718 Personal history of other venous thrombosis and embolism; Z86.711 Personal history of pulmonary embolism; Z79.01 Long term (current) use of anticoagulants
CPT/HCPCS: 70491; 80048; 85025; 85610; 85730; 96361; 96365; 96375; 99284; J1642; J2270; J2405; J7030; Q9967

== ENCOUNTER 2017-07-14 22:23 | Inpatient (IN) | payer MEDICARE ==
[~2017-07-14] VITALS: Ht 165.1 cm; Wt 79.5 kg
[~2017-07-14 22:23] MED LIST changes: +CLIN300C5 PO; +HYDR-3533 PO
[2017-07-14] MEDS ORDERED: SODIUM CHLOR 0.9% 1000 ML INJ 1,000 ML IV SCH (22:35)
[2017-07-14 22:36] VITALS: BP 135/63; PULSE 95; RESP 18; TEMP 99.5; O2SAT 94
[2017-07-14] MEDS ORDERED: VANCOMYCIN INJ 1,000 MG in SODIUM CHLOR 0.9% 250 ML INJ 250 ML IV ONE (22:45)
[2017-07-14] MEDS ORDERED: ACETAMINOPHEN 325 MG TAB PO ONE (22:45)
[2017-07-14] MEDS ORDERED: SODIUM CHLORIDE 0.9% FLUSH 10 ML FLUSH IV FLUSH PRN (22:45)
[2017-07-14] MEDS ORDERED: TRAM50TA PO (22:51)
[2017-07-14 23:14] LABS: BASOPHIL % 0.7 % (0.0-2.0); EOSINOPHIL % 0.1 % (0.0-4.0); HEMATOCRIT 32.1 % (35.0-46.0); HEMOGLOBIN 10.9 GM/DL (11.6-15.3); LYMPH % 11.6 % (9.0-44.0); LYMPHOCYTE # 0.5 TH/MM3 (1.0-4.8); MEAN CELL VOLUME 96.2 FL (80.0-100.0); MEAN CORPUSCULAR HEMOGLOBIN 32.8 PG (27.0-34.0); MEAN CORPUSCULAR HGB CONC 34.1 % (32.0-36.0); MEAN PLATELET VOLUME 8.6 FL (7.0-11.0); MONO % 22.8 % (0.0-8.0); NEUT % 64.8 % (16.0-70.0); PLATELET COUNT 109 TH/MM3 (150-450); RED BLOOD COUNT 3.34 MIL/MM3 (4.00-5.30); RED CELL DISTRIBUTION WIDTH 19.2 % (11.6-17.2); WHITE BLOOD COUNT 4.6 TH/MM3 (4.0-11.0)
[2017-07-14 23:16] LABS: BACTERIA, URINE OCC /hpf; BILIRUBIN, URINE NEG (NEG); BLOOD, URINE NEG (NEG); GLUCOSE,URINE NEG (NEG); HYALINE CAST, URINE 1 /lpf (RARE); KETONE, URINE NEG (NEG); MUCUS URINE FEW /lpf (OCC); NITRITE,URINE NEG (NEG); TRANSITIONAL EPI CELLS, URINE <1 /hpf; URINE COLOR YELLOW (YELLW/STRAW); URINE LEUKOCYTE ESTERASE MOD (NEG)
[2017-07-14 23:21] LABS: INTERNATIONAL NORMALIZED RATIO 4.3 RATIO
--- NOTE | 2017-07-14 23:25 | RADRPT ---
EXAM DATE/TIME: 07/14/2017 23:03 [facility] COMPARISON: CHEST SINGLE AP, June 29, 2016, 14:13. INDICATIONS : Short of breath. MEDICAL HISTORY : None. SURGICAL HISTORY : CABG. ENCOUNTER: Initial ACUITY: 1 day PAIN SCORE: 0/10 LOCATION: Bilateral chest FINDINGS: Stable right IJ [id number]. No significant new focal pleural-parenchymal opacities. Cardiomediasti nal contours are stable. Remainder of the exam is unchanged. CONCLUSION: 1. Motion degraded exam without acute abnormality or significant interval change. Marquis Cavazos MD on July 14, 2017 at 23:23 Board Certified Radiologist. This report was verified electronically.
[2017-07-14 23:27] LABS: LACTIC ACID SEPSIS PROTOCOL 2.2 mmol/L (0.4-2.0)
--- NOTE | 2017-07-14 23:37 | RADRPT ---
EXAM DATE/TIME: 07/14/2017 23:20 [facility] COMPARISON: CT BRAIN W/O CONTRAST, August 28, 2015, 16:59. INDICATIONS : Altered mental status. RADIATION DOSE: 38.35 CTDIvol (mGy) MEDICAL HISTORY : Carcinoma, not otherwise specified. SURGICAL HISTORY : CABG ENCOUNTER: Initial ACUITY: 1 day PAIN SCALE: Non-responsive LOCATION: cranial TECHNIQUE: Multiple contiguous axial images were obtained of the head. Using automated exposure control and adj ustment of the mA and/or kV according to patient size, radiation dose was kept as low as reasonably a chievable to obtain optimal diagnostic quality images. DICOM format image data is available electro nically for review and comparison. FINDINGS: CEREBRUM: Mild diffuse cerebral atrophy. Stable small lacunar infarct in the right basal ganglia. The ventricle s are normal for degree of atrophy. No evidence of midline shift, mass lesion, hemorrhage or acute i nfarction. No extra-axial fluid collections are seen. POSTERIOR FOSSA: The cerebellum and brainstem are intact. The 4th ventricle is midline. The cerebellopontine angle i s unremarkable. EXTRACRANIAL: The visualized portion of the orbits is intact. The flexor sinus fluid and mucoperiosteal thickening. SKULL: The calvaria is intact. No evidence of skull fracture. CONCLUSION: 1. Senescent changes with stable right basal ganglia the current chart. 2. No acute intracranial abnormality. 3. Left maxillary sinusitis. Marquis Cavazos MD on July 14, 2017 at 23:34 Board Certified Radiologist. This report was verified electronically.
[2017-07-14] MEDS ORDERED: AZTREONAM INJ 2,000 MG in SODIUM CHLORIDE 0.9% INJ 100 ML IV STA (23:38)
--- NOTE | 2017-07-14 23:38 | PD ---
HPI Chief Complaint: Altered Mental Status Time Seen by Provider: 22:35 Travel History International Travel<30 days: No Contact w/Intl Traveler<30days: No Traveled to known affect area: No History of Present Illness HPI 72-year-old female presents to the emergency department for complaint of altered mentation. Altered mentation is been noted by family over the past 2 days. Patient has history of metastatic endometrial cancer with history of bilateral lower extremity DVT and pulmonary embolism on anticoagulation with Coumadin and previous [place] filter. Patient's cancer is being monitored by Dr. Valera as well as her anemia and DVT history being managed by Dr. Albarran and more recently patient has been evaluated by Dr. Paz radiation oncologist along with Dr. Olvera and patient has been identified to not be a surgical candidate and by interventional radiology is not a candidate for radiofrequency ablation or radioactive spheres. Patient is in the process of completing a course of chemotherapy does have an [id number] and will be reassessed in July by her managing providers to see what next intervention is possible for the patient. Patient has been doing fairly well with chemotherapy and more recently the last 2 days has had increased confusion. Patient today was noted to have fever. Patient was transported by EMS and they noted a temperature elevation of 99.6F. Patient is also diabetic with blood sugars have been well controlled. Patient does note right sided abdominal pain and flank pain 5/10 in intensity. Patient denies any chest pain pleuritic pain or shortness of breath. PFSH Past Medical History Narrative Medical CABG cardiac catheterization with stent CAD diabetes hypothyroidism pulmonary embolism DVT diabetes hypertension metastatic uterine cancer with metastatic disease to the liver chemotherapy [place] filter Coumadin therapy; no tobacco use; nursing notes reviewed Hx Anticoagulant Therapy: Yes (COUMADIN) Asthma: No Anxiety: No Depression: No Heart Rhythm Problems: No Cancer: Yes (uterine WITH METS) Cardiovascular Problems: Yes (TRIPLE BYPASS 09/01) High Cholesterol: Yes Chemotherapy: Yes (09/27/16) Chest Pain: No Congestive Heart Failure: No COPD: No Diabetes: Yes Patient Takes Glucophage: No Diminished Hearing: No Endocrine: Yes Genitourinary: Yes (occ uti,s) Hepatitis: No Hiatal Hernia: No Immune Disorder: No Musculoskeletal: Yes (arthritis in both hands) Neurologic: No Psychiatric: No Reproductive: Yes (uterine cancer) Respiratory: No Immunizations Current: No Radiation Therapy: Yes Sleep Apnea: No Thyroid Disease: Yes Tetanus Vaccination: > 5 Years Influenza Vaccination: No Past Surgical History AICD: No Body Medical Devices: blood clottting filter, blood clot left leg x1 cardiac stent Cardiac Surgery: Yes (triple cardiac by-pass x1 cardiac stent clotting filter placement) Gynecologic Surgery: Yes (hysterectomy) Hysterectomy: Yes Joint Replacement: No Pacemaker: No Other Surgery: Yes Social History Alcohol Use: No Tobacco Use: No Substance Use: No Allergies-Medications (Allergen,Severity, Reaction): Coded Allergies: penicillin G (Unverified Allergy, Severe, SWELLING, 07/14/17) Reported Meds & Prescriptions Reported Meds & Active Scripts Active Reported Tramadol (Tramadol HCl) 50 Mg Tab 50 Mg PO Q4H PRN Lantus Inj (Insulin Glargine) 1,000 Unit/10 Ml Vial 30 Units SQ HS Synthroid (Levothyroxine Sodium) 175 Mcg Tab 175 Mcg PO HS Probiotic (Lactobacillus Acidophilus) 1 Cap Cap 1 Cap PO HS B Complex/Vitamin C (B Complex W/ C) 1 Cap Cap 1 Tab PO HS Warfarin 4 Mg Tab 3 Mg PO HS Review of Systems Except as stated in HPI: all other systems reviewed are Neg General / Constitutional: Positive: Fever, Chills HENT: No: Congestion Cardiovascular: No: Chest Pain or Discomfort Respiratory: No: Shortness of Breath Gastrointestinal: Positive: Nausea, Abdominal Pain Genitourinary: No: Flank Pain Musculoskeletal: No: Myalgias, Arthralgias Skin: No Rash Neurologic: Positive: Weakness, Change in Mentation Psychiatric: No: Anxiety Hematologic/Lymphatic: No: Lymph Node Enlargement Physical Exam Narrative GENERAL: Well-developed well-nourished pale female in no acute distress or respiratory distress; GCS 14 SKIN: Warm and dry. HEAD: Atraumatic. Normocephalic. EYES: Pupils equal and round. No scleral icterus. No injection or drainage. ENT: No nasal bleeding or discharge. Mucous membranes pink and moist. NECK: Trachea midline. No JVD. CARDIOVASCULAR: Increased regular rate and rhythm. RESPIRATORY: No accessory muscle use. Clear to auscultation. Breath sounds equal bilaterally. GASTROINTESTINAL: Abdomen soft, non-tender, nondistended. Hepatic and splenic margins not palpable. MUSCULOSKELETAL: Extremities without clubbing, cyanosis, or edema. No obvious deformities. NEUROLOGICAL: Awake and alert. No obvious cranial nerve deficits. Motor grossly within normal limits. Five out of 5 muscle strength in the arms and legs. Normal speech. PSYCHIATRIC: Appropriate mood and affect; insight and judgment normal. Data Data Last Documented VS Vital Signs Date Time Temp Pulse Resp B/P (MAP) Pulse Ox O2 Delivery O2 Flow Rate FiO2 07/14/17 22:39 18 95 Room Air 07/14/17 22:36 99.5 95 135/63 (87) Orders Orders Electrocardiogram (07/14/17 22:35) Ammonia (07/14/17 22:35) Complete Blood Count With Diff (07/14/17 22:35) Comprehensive Metabolic Panel (07/14/17 22:35) Creatine Kinase (Cpk) (07/14/17 22:35) Prothrombin Time / Inr (Pt) (07/14/17 22:35) Act Partial Throm Time (Ptt) (07/14/17 22:35) Troponin I (07/14/17 22:35) Thyroid Stimulating Hormone (07/14/17 22:35) Urinalysis - C+S If Indicated (07/14/17 22:35) Lactic Acid Sepsis Protocol (07/14/17 22:35) Blood Culture (07/14/17 22:35) Chest, Single Ap (07/14/17 22:35) Ct Brain W/O Iv Contrast(Rout) (07/14/17 22:35) Blood Glucose (07/14/17 22:35) Ecg Monitoring (07/14/17 22:35) Iv Access Insert/Monitor (07/14/17 22:35) Oximetry (07/14/17 22:35) Sodium Chloride 0.9% Flush (Ns Flush) (07/14/17 22:45) Sodium Chlor 0.9% 1000 Ml Inj (Ns 1000 M (07/14/17 22:35) Acetaminophen (Tylenol) (07/14/17 22:45) Vancomycin Inj (Vancomycin Inj) (07/14/17 22:45) Urine Culture (07/14/17 22:57) Aztreonam Inj (Azactam Inj) (07/14/17 23:38) Sodium Chlor 0.9% 1000 Ml Inj (Ns 1000 M (07/15/17 00:00) Sodium Chlor 0.9% 1000 Ml Inj (Ns 1000 M (07/15/17 00:00) Admit Order (Ed Use Only) (07/15/17 ) Trench Digger / Telemetry ODALYS.Q8H (07/15/17 01:32) Diet Npo (07/15/17 Breakfast) Activity Bed Rest (07/15/17 01:32) Notify Dr: Other (07/15/17 01:32) Labs Laboratory Tests Test 07/14/17 22:57 White Blood Count 4.6 TH/MM3 Red Blood Count 3.34 MIL/MM3 Hemoglobin 10.9 GM/DL Hematocrit 32.1 % Mean Corpuscular Volume 96.2 FL Mean Corpuscular Hemoglobin 32.8 PG Mean Corpuscular Hemoglobin Concent 34.1 % Red Cell Distribution Width 19.2 % Platelet Count 109 TH/MM3 Mean Platelet Volume 8.6 FL Neutrophils (%) (Auto) 64.8 % Lymphocytes (%) (Auto) 11.6 % Monocytes (%) (Auto) 22.8 % Eosinophils (%) (Auto) 0.1 % Basophils (%) (Auto) 0.7 % Neutrophils # (Auto) 3.0 TH/MM3 Lymphocytes # (Auto) 0.5 TH/MM3 Monocytes # (Auto) 1.0 TH/MM3 Eosinophils # (Auto) 0.0 TH/MM3 Basophils # (Auto) 0.0 TH/MM3 CBC Comment AUTO DIFF Differential Total Cells Counted 100 Neutrophils % (Manual) 50 % Band Neutrophils % 14 % Lymphocytes % 14 % Monocytes % 21 % Neutrophils # (Manual) 3.0 TH/MM3 Myelocytes 1 % Nucleated Red Blood Cells 1 /100 WBC Differential Comment FINAL DIFF MANUAL Toxic Granulation Toxic Vacuolation PRESENT Platelet Estimate LOW Platelet Morphology Comment NORMAL Prothrombin Time 43.0 SEC Prothromb Time International Ratio 4.3 RATIO Activated Partial Thromboplast Time 35.9 SEC Urine Color YELLOW Urine Turbidity CLEAR Urine pH 5.0 Urine Specific [place] 1.017 Urine Protein TRACE mg/dL Urine Glucose (UA) NEG mg/dL Urine Ketones NEG mg/dL Urine Occult Blood NEG Urine Nitrite NEG Urine Bilirubin NEG Urine Urobilinogen LESS THAN 2.0 MG/DL Urine Leukocyte Esterase MOD Urine RBC 2 /hpf Urine WBC 17 /hpf Urine Transitional Epithelial Cells <1 /hpf Urine Bacteria OCC /hpf Urine Hyaline Casts 1 /lpf Urine Mucus FEW /lpf Microscopic Urinalysis Comment CATH-CULTURE IND Blood Urea Nitrogen 17 MG/DL Creatinine 0.68 MG/DL Random Glucose 94 MG/DL Total Protein 7.0 GM/DL Albumin 2.8 GM/DL Calcium Level 11.8 MG/DL Alkaline Phosphatase 217 U/L Aspartate Amino Transf (AST/SGOT) 62 U/L Alanine Aminotransferase (ALT/SGPT) 21 U/L Total Bilirubin 0.4 MG/DL Sodium Level 136 MEQ/L Potassium Level 4.3 MEQ/L Chloride Level 100 MEQ/L Carbon Dioxide Level 28.4 MEQ/L Anion Gap 8 MEQ/L Estimat Glomerular Filtration Rate 85 ML/MIN Lactic Acid Level 2.2 mmol/L Protein Corrected Calcium 11.9 MG/DL Ammonia 14 MCMOL/L Total Creatine Kinase 35 U/L Troponin I LESS THAN 0.02 NG/ML Thyroid Stimulating Hormone 3rd Gen LESS THAN 0.005 uIU/ML MDM Medical Decision Making Medical Screen Exam Complete: Yes Emergency Medical Condition: Yes Medical Record Reviewed: Yes Interpretation(s) EKG sinus tachycardia rate [address] elevation ST segment depression laterally for ischemia CBC & BMP Diagram 07/14/17 22:57 Total Protein 7.0, Albumin 2.8 L, Calcium Level 11.8 *H, Alkaline Phosphatase 217 H, Aspartate Amino Transf (AST/SGOT) 62 H, Alanine Aminotransferase (ALT/ SGPT) 21, Total Bilirubin 0.4 Vital Signs Date Time Temp Pulse Resp B/P (MAP) Pulse Ox O2 Delivery O2 Flow Rate FiO2 07/14/17 22:39 18 95 Room Air 07/14/17 22:36 99.5 95 18 135/63 (87) 94 UA: White blood cells occasional bacteria cath specimen culture indicated Differential Diagnosis Sepsis, ICH, pneumonia, PE, coagulopathy, metastatic expansion, UTI Narrative Course [id number] access to IV fluids administered patient administered IV antibiotics after cultures obtained imaging study ordered Patient given IV fluid bolus At 1:45 AM patient's mentation is much improved vital signs are improved patient identified to have a normal total white cell count but left shift 14% bands and abnormal urinalysis as well as elevated lactic acid patient meets sepsis criteria and will be admitted for sepsis/bacteremia and patient with known metastatic uterine cancer with metastatic disease to the liver undergoing chemotherapy. Patient's case discussed with on-call [facility] M<D for admission CT abd/pel ordered Critical Care Narrative Aggregate critical care time was 35 Minutes. Time to perform other separately billable procedures was not included in the critical care time. My time did not include minutes spent treating any other patients simultaneously or on activities that did not directly contribute to the patient's treatment. The services I provided to this patient were to treat and/or prevent clinically significant deterioration that could result in: Septic shock, I provided critical care services requiring my management, as noted below: Chart data review, documentation time, medication orders and management, vital sign assessments/reviewing monitor data, ordering and reviewing lab tests, ordering and interpreting/reviewing x-rays and diagnostic studies, care of the patient and discussion of the patient with the admitting physicians. Physician Communication Physician Communication discussed with Dr Whyte Diagnosis Primary Impression: Sepsis Qualified Codes: A41.9 - Sepsis, unspecified organism Additional Impressions: Hypercalcemia UTI (urinary tract infection) Qualified Codes: N39.0 - Urinary tract infection, site not specified Uterine cancer Admitting Information Admitting Physician Requests: it Mikayla Bey MD Jul 14, 2017 23:38
[2017-07-14 23:45] LABS: BANDS 14 % (0-6); CORRECTED NUCLEATED RBC 1 /100 WBC (0-0); LYMPHOCYTES 14 % (9-44); MONOCYTES 21 % (0-8); MYELOCYTES 1 % (0-0); NUCLEATED RED BLOOD CELL 1 (0-0); POLYS (SEG NEUTROPHILS) 50 % (16-70)
[2017-07-14 23:47] LABS: TOXIC VACUOLATION PRESENT (NONE SEEN)
[2017-07-14 23:48] LABS: ALBUMIN 2.8 GM/DL (3.4-5.0); ALT (GPT) 21 U/L (10-53); AST (GOT) 62 U/L (15-37); BICARBONATE 28.4 MEQ/L (21.0-32.0); BLOOD UREA NITROGEN 17 MG/DL (7-18); CALCIUM 11.8 MG/DL (8.5-10.1); CHLORIDE 100 MEQ/L (98-107); CREATININE 0.68 MG/DL (0.50-1.00); GLOMERULAR FILTRATION RATE 85 ML/MIN (>89); GLUCOSE,RANDOM 94 MG/DL (74-106); SODIUM (NA) 136 MEQ/L (136-145)
[2017-07-14 23:56] LABS: ALKALINE PHOSPHATASE 217 U/L (45-117); TOTAL BILIRUBIN ADULT 0.4 MG/DL (0.2-1.0); TROPONIN I LESS THAN 0.02 NG/ML (0.02-0.05)
[2017-07-15] VITALS (16 sets, daily range): BP systolic 142–158; BP diastolic 62–82; PULSE 88–102; RESP 16–19; TEMP 98–99.4; O2SAT 93–97
[2017-07-15 00:01] LABS: CALCIUM-PROTEIN CORRECTED 11.9 MG/DL (8.5-10.1)
[2017-07-15] MEDS ORDERED: NALOXONE HCL 0.4 MG/ML AMP IV PUSH PRN (02:15)
[2017-07-15] MEDS ORDERED: ACETAMINOPHEN 325 MG TAB PO PRN (02:15)
[2017-07-15] MEDS ORDERED: SODIUM CHLORIDE 0.9% FLUSH 10 ML FLUSH IV FLUSH PRN (02:15)
[2017-07-15] MEDS ORDERED: ONDANSETRON HCL 4 MG/2 ML VIAL IVP PRN (02:15)
[2017-07-15] MEDS ORDERED: Vancomycin Consult Pharmacy 1 EA OTHER SCH (02:15)
[2017-07-15] MEDS ORDERED: SODIUM CHLOR 0.9% 1000 ML INJ 1,000 ML IV ONE ×3 (02:30)
[2017-07-15] MEDS ORDERED: VANCOMYCIN 500 MG/NS 100 ML IV ONE ×2 (03:00)
--- NOTE | 2017-07-15 03:40 | HHI.HP ---
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 The patient reports she has not urinated since yesterday. She also reports a three-week history of increasing weakness. She has chemotherapy-induced anemia and undergoes regular transfusions. Last transfusion was Friday. Per patient's after she receives transfusions she usually feels better however there was no change in her weakness and to some degree the patient feels that it worsened. She endorses subjective fever/chills. Denies chest pain/shortness of breath. No cough. No sore throat. 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, CAD, type 2 diabetes mellitus and hypothyroidism Past Surgical History CABG 3 IVC filter Hysterectomy Coronary stenting Reported Medications Reported Meds & Active Scripts Active Reported Tramadol (Tramadol HCl) 50 Mg Tab 50 Mg PO Q4H PRN Lantus Inj (Insulin Glargine) 1,000 Unit/10 Ml Vial 30 Units SQ HS Synthroid (Levothyroxine Sodium) 175 Mcg Tab 175 Mcg PO HS Probiotic (Lactobacillus Acidophilus) 1 Cap Cap 1 Cap PO HS B Complex/Vitamin C (B Complex W/ C) 1 Cap Cap 1 Tab PO HS Warfarin 4 Mg Tab 3 Mg PO HS Allergies: Coded Allergies: penicillin G (Unverified Allergy, Severe, SWELLING, 07/14/17) Family History Father with coronary artery disease Social History Denies alcohol, tobacco and illicit drugs Physical Exam Vital Signs Vital Signs Date Time Temp Pulse Resp B/P (MAP) Pulse Ox O2 Delivery O2 Flow Rate FiO2 07/15/17 02:10 100 18 146/62 (90) 96 07/15/17 02:01 95 Room Air 07/14/17 22:39 18 95 Room Air 07/14/17 22:36 99.5 95 18 135/63 (87) 94 Physical Exam GENERAL: female lying in bed SKIN: No rashes, ecchymoses or lesions. Cool and dry. HEAD: Atraumatic. Normocephalic. No temporal or scalp tenderness. EYES: Pupils equal round and reactive. Extraocular motions intact. No scleral icterus. No injection or drainage. ENT: Nose without bleeding, purulent drainage or septal hematoma. Throat without erythema, tonsillar hypertrophy or exudate. Uvula midline. Airway patent. NECK: Trachea midline. No JVD or lymphadenopathy. Supple, nontender, no meningeal signs. CARDIOVASCULAR: Regular rate and rhythm without murmurs, gallops, or rubs. RESPIRATORY: Clear to auscultation. Breath sounds equal bilaterally. No wheezes , rales, or rhonchi. GASTROINTESTINAL: Abdomen soft, non-tender, nondistended. No hepato-splenomegaly , or palpable masses. No guarding. MUSCULOSKELETAL: Extremities without clubbing, cyanosis, or edema. No joint tenderness, effusion, or edema noted. No calf tenderness. NEUROLOGICAL: Awake and alert. Cranial nerves II through XII intact. Motor and sensory grossly within normal limits. Normal speech. Laboratory Laboratory Tests Test 07/14/17 22:57 07/15/17 01:47 White Blood Count 4.6 Red Blood Count 3.34 Hemoglobin 10.9 Hematocrit 32.1 Mean Corpuscular Volume 96.2 Mean Corpuscular Hemoglobin 32.8 Mean Corpuscular Hemoglobin Concent 34.1 Red Cell Distribution Width 19.2 Platelet Count 109 Mean Platelet Volume 8.6 Neutrophils (%) (Auto) 64.8 Lymphocytes (%) (Auto) 11.6 Monocytes (%) (Auto) 22.8 Eosinophils (%) (Auto) 0.1 Basophils (%) (Auto) 0.7 Neutrophils # (Auto) 3.0 Lymphocytes # (Auto) 0.5 Monocytes # (Auto) 1.0 Eosinophils # (Auto) 0.0 Basophils # (Auto) 0.0 CBC Comment AUTO DIFF Differential Total Cells Counted 100 Neutrophils % (Manual) 50 Band Neutrophils % 14 Lymphocytes % 14 Monocytes % 21 Neutrophils # (Manual) 3.0 Myelocytes 1 Nucleated Red Blood Cells 1 Differential Comment FINAL DIFF MANUAL Toxic Granulation Toxic Vacuolation PRESENT Platelet Estimate LOW Platelet Morphology Comment NORMAL Prothrombin Time 43.0 Prothromb Time International Ratio 4.3 Activated Partial Thromboplast Time 35.9 Urine Color YELLOW Urine Turbidity CLEAR Urine pH 5.0 Urine Specific [place] 1.017 Urine Protein TRACE Urine Glucose (UA) NEG Urine Ketones NEG Urine Occult Blood NEG Urine Nitrite NEG Urine Bilirubin NEG Urine Urobilinogen LESS THAN 2.0 Urine Leukocyte Esterase MOD Urine RBC 2 Urine WBC 17 Urine Transitional Epithelial Cells <1 Urine Bacteria OCC Urine Hyaline Casts 1 Urine Mucus FEW Microscopic Urinalysis Comment CATH-CULTURE IND Blood Urea Nitrogen 17 Creatinine 0.68 Random Glucose 94 Total Protein 7.0 Albumin 2.8 Calcium Level 11.8 Alkaline Phosphatase 217 Aspartate Amino Transf (AST/SGOT) 62 Alanine Aminotransferase (ALT/SGPT) 21 Total Bilirubin 0.4 Sodium Level 136 Potassium Level 4.3 Chloride Level 100 Carbon Dioxide Level 28.4 Anion Gap 8 Estimat Glomerular Filtration Rate 85 Lactic Acid Level 2.2 1.7 Protein Corrected Calcium 11.9 Ammonia 14 Total Creatine Kinase 35 Troponin I LESS THAN 0.02 Thyroid Stimulating Hormone 3rd Gen LESS THAN 0.005 Date/Time Source Procedure Growth Status 07/14/17 23:00 Blood Peripheral Aerobic Blood Culture Pending Received 07/14/17 23:00 Blood Peripheral Anaerobic Blood Culture Pending Received 07/14/17 22:57 Urine Catheterized Urine Urine Culture Pending Received Result Diagram: 07/14/17225607/14/172256 Caprini VTE Risk Assessment Caprini VTE Risk Assessment: Mod/High Risk (score >= 2) Caprini Risk Assessment Model Point Value = 1 Point Value = 2 Point Value = 3 Point Value = 5 Age 41-60 Minor surgery BMI > 25 kg/m2 Swollen legs Varicose veins or History of unexplained or recurrent spontaneous Oral contraceptives or hormone replacement Sepsis (< 1 month) Serious lung disease, including pneumonia (< 1 month) Abnormal pulmonary function Acute myocardial infarction Congestive heart failure (< 1 month) History of inflammatory bowel disease Medical patient at bed rest Age 61-74 Arthroscopic surgery Major open surgery (> 45 min) Laparoscopic surgery (> 45 min) Malignancy Confined to bed (> 72 hours) Immobilizing plaster cast Central venous access Age >= 75 History of VTE Family history of VTE Factor V Leiden Prothrombin [id number] Lupus anticoagulant Anticardiolipin antibodies Elevated serum homocysteine Heparin-induced thrombocytopenia Other congenital or acquired thrombophilia Stroke (< 1 month) Elective arthroplasty Hip, pelvis, or leg fracture Acute spinal cord injury (< 1 month) Prophylaxis Regimen Total Risk Factor Score Risk Level Prophylaxis Regimen 0-1 Low Early ambulation 2 Moderate Order ONE of the following: *Sequential Compression Device (SCD) *Heparin 5000 units SQ BID 3-4 Higher Order ONE of the following medications: *Heparin 5000 units SQ TID *Enoxaparin/Lovenox 40 mg SQ daily (WT < 150 kg, CrCl > 30 mL/min) *Enoxaparin/Lovenox 30 mg SQ daily (WT < 150 kg, CrCl > 10-29 mL/min) *Enoxaparin/Lovenox 30 mg SQ BID (WT < 150 kg, CrCl > 30 mL/min) AND/OR *Sequential Compression Device (SCD) 5 or more Highest Order ONE of the following medications: *Heparin 5000 units SQ TID (Preferred with Epidurals) *Enoxaparin/Lovenox 40 mg SQ daily (WT < 150 kg, CrCl > 30 mL/min) *Enoxaparin/Lovenox 30 mg SQ daily (WT < 150 kg, CrCl > 10-29 mL/min) *Enoxaparin/Lovenox 30 mg SQ BID (WT < 150 kg, CrCl > 30 mL/min) AND *Sequential Compression Device (SCD) Assessment and Plan Assessment and Plan Assessment/plan: 1. Sepsis/UTI Patient tachycardic with elevated lactic acid Patient immunocompromised as last chemotherapy was 3 weeks ago UA significant for occasional bacteria, 17 WBCs, moderate leukocyte esterase and catheterized specimen Aztreonam/vancomycin as patient allergic to penicillin concern for cross- reactivity with cefepime Blood, urine cultures pending Chest x-ray negative for acute disease, personally reviewed Repeat lactic acid within normal limits 2. Endometrial cancer with known metastatic disease Patient has completed chemotherapy, will follow-up as outpatient with Dr. Paz for evaluation of radiation treatments History of chemotherapy-induced anemia, monitor CBC and transfuse as needed 3. History of DVT/PE/supratherapeutic INR INR 4.3 Pharmacy consulted, appreciate assistance for goal INR of 2-3 4. Diabetes mellitus Continue home Lantus Sliding scale insulin Monitor blood glucose 5. Hypothyroidism/CAD Continue home medications FEN Regular diet Electrolytes: monitor and replete prn Coumadin Physician Certification 2 Midnight Certification Type: Admission for Inpatient Services Order for Inpatient Services The services are ordered in accordance with Medicare regulations or non- Medicare payer requirements, as applicable. In the case of services not specified as inpatient-only, they are appropriately provided as inpatient services in accordance with the 2-midnight benchmark. Estimated LOS (days): 2 2 days is the estimated time the patient will need to remain in the hospital, assuming treatment plan goals are met and no additional complications. Post-Hospital Plan: Not yet determined Kaylah Whyte MD Jul 15, 2017 03:40
[2017-07-15] MEDS ORDERED: traMADol HCL 50 MG TAB PO PRN (03:45)
[2017-07-15] MEDS ORDERED: IOHEXOL 350 MG/ML 10 ML VIAL (for RAD DIAG) IVCONTRAST ONE (03:58)
--- NOTE | 2017-07-15 04:15 | RADRPT ---
EXAM DATE/TIME: 07/15/2017 03:42 [facility] COMPARISON: CT NEEDLE BIOPSY LIVER, June 24, 2016, 10:55. INDICATIONS : Abdomen pain. IV CONTRAST: 100 cc Omnipaque 350 (iohexol) IV ORAL CONTRAST: No oral contrast ingested. RADIATION DOSE: 7.26 CTDIvol (mGy) MEDICAL HISTORY : Carcinoma, not otherwise specified. Cardiovascular disease SURGICAL HISTORY : Hysterectomy. ENCOUNTER: Initial ACUITY: 1 day PAIN SCALE: 5/10 LOCATION: Bilateral abdomen. TECHNIQUE: Volumetric scanning of the abdomen and pelvis was performed. Using automated exposure control and ad justment of the mA and/or kV according to patient size, radiation dose was kept as low as reasonably achievable to obtain optimal diagnostic quality images. DICOM format image data is available electro nically for review and comparison. FINDINGS: LOWER LUNGS: Minimal airspace consolidation at the right lung base. LIVER: Numerous coalescing hypodense lesions in the right lobe and segment 4 of the liver. No significant in trahepatic ductal dilatation. No calcified gallstones. SPLEEN: Normal size without lesion. PANCREAS: Within normal limits. KIDNEYS: 3.7 cm cyst in the inferior pole of the left kidney. Kidneys otherwise demonstrate symmetrical enhanc ement without evidence for hydronephrosis. ADRENAL GLANDS: Within normal limits. VASCULAR: There is no aortic aneurysm. IVC filter in place. BOWEL/MESENTERY: The stomach, small bowel, and colon demonstrate no acute abnormality. There is no free intraperitone al air or fluid. ABDOMINAL WALL: Within normal limits. RETROPERITONEUM: There is no lymphadenopathy. BLADDER: No wall thickening or mass. REPRODUCTIVE: Uterus is surgically absent. INGUINAL: There is no lymphadenopathy or hernia. MUSCULOSKELETAL: Within normal limits for patient age. CONCLUSION: 1. Progressive numerous coalescing hypodense hepatic masses in this patient with known metastatic mookie rine carcinoma to the liver. 2. Minimal airspace consolidation of the right lung base, presumably atelectasis. 3. No acute CT abnormality in the abdomen or pelvis. Marquis Cavazos MD on July 15, 2017 at 4:07 Board Certified Radiologist. This report was verified electronically.
[2017-07-15] MEDS: SODIUM CHLOR 0.9% 1000 ML INJ 1,000 ML IV SCH ×2 (04:36→22:41)
[2017-07-15] MEDS: LEVOTHYROXINE SODIUM 75 MCG TAB PO SCH (07:07)
[2017-07-15] MEDS: LEVOTHYROXINE SODIUM 100 MCG TAB PO SCH (07:08)
[2017-07-15] MEDS: SODIUM CHLORIDE 0.9% FLUSH 10 ML FLUSH IV FLUSH SCH ×2 (09:00→21:00)
[2017-07-15] MEDS: AZTREONAM INJ 2,000 MG in SODIUM CHLORIDE 0.9% INJ 100 ML IV SCH ×2 (11:08→17:48)
[2017-07-15] MEDS: INSULIN DETEMIR 100 UNITS/ML VIAL SQ SCH (21:31)
--- NOTE | 2017-07-15 22:12 | EKG ---
Date Performed: 07/15/2017 Time Performed: 02:07:06 PTAGE: 72 years EKG: SINUS TACHYCARDIA ST DEVIATION AND MODERATE T-WAVE ABNORMALITY ABNORMAL ECG PREVIOUS TRACING : 06/29/2016 14.19 Compared to prior tracing, ST-T CHANGES ARE NEW DOCTOR: Ha Jackson Interpretating Date/Time 07/15/2017 22:11:28
[2017-07-15] MEDS ORDERED: VANCOMYCIN INJ 1,250 MG in SODIUM CHLOR 0.9% 250 ML INJ 250 ML IV SCH (23:00)
[2017-07-16] VITALS (24 sets, daily range): BP systolic 149–175; BP diastolic 71–84; PULSE 84–98; RESP 16–19; TEMP 97.5–98.6; O2SAT 94–98
[2017-07-16] MEDS: AZTREONAM INJ 2,000 MG in SODIUM CHLORIDE 0.9% INJ 100 ML IV SCH ×3 (01:16→17:34)
[2017-07-16] MEDS: LEVOTHYROXINE SODIUM 100 MCG TAB PO SCH (06:28)
[2017-07-16] MEDS: LEVOTHYROXINE SODIUM 75 MCG TAB PO SCH (06:29)
[2017-07-16] MEDS: SODIUM CHLORIDE 0.9% FLUSH 10 ML FLUSH IV FLUSH SCH ×2 (09:00→21:32)
[2017-07-16 09:12] LABS: AUTOMATED NEUTROPHIL # 3.1 TH/MM3 (1.8-7.7); BASOPHIL % 0.4 % (0.0-2.0); EOSINOPHIL % 0.2 % (0.0-4.0); HEMATOCRIT 28.2 % (35.0-46.0); HEMOGLOBIN 9.5 GM/DL (11.6-15.3); LYMPH % 9.1 % (9.0-44.0); LYMPHOCYTE # 0.4 TH/MM3 (1.0-4.8); MEAN CELL VOLUME 97.5 FL (80.0-100.0); MEAN CORPUSCULAR HEMOGLOBIN 32.8 PG (27.0-34.0); MEAN CORPUSCULAR HGB CONC 33.6 % (32.0-36.0); MEAN PLATELET VOLUME 8.4 FL (7.0-11.0); MONO % 19.2 % (0.0-8.0); MONOCYTE # 0.8 TH/MM3 (0-0.9); NEUT % 71.1 % (16.0-70.0); PLATELET COUNT 101 TH/MM3 (150-450); RED BLOOD COUNT 2.89 MIL/MM3 (4.00-5.30); RED CELL DISTRIBUTION WIDTH 19.3 % (11.6-17.2); WHITE BLOOD COUNT 4.4 TH/MM3 (4.0-11.0)
[2017-07-16 09:31] LABS: BICARBONATE 24.7 MEQ/L (21.0-32.0); CALCIUM 11.4 MG/DL (8.5-10.1); CREATININE 0.44 MG/DL (0.50-1.00)
[2017-07-16] MEDS: VANCOMYCIN INJ 1,250 MG in SODIUM CHLOR 0.9% 250 ML INJ 250 ML IV SCH (12:01)
[2017-07-16] MEDS: SODIUM CHLOR 0.9% 1000 ML INJ 1,000 ML IV SCH ×2 (17:37→18:11)
--- NOTE | 2017-07-16 19:57 | HHI.PR ---
Subjective Remarks Patient seen and examined this afternoon around 1 PM. Says she is feeling well. Denies any chest pain or shortness of breath. Objective Vital Signs Date Time Temp Pulse Resp B/P (MAP) Pulse Ox O2 Delivery O2 Flow Rate FiO2 07/16/17 16:00 98.4 91 16 155/71 (99) 98 07/16/17 12:07 97.5 88 16 149/71 (97) 94 07/16/17 11:00 90 07/16/17 10:00 86 07/16/17 09:00 94 07/16/17 08:35 98.3 93 16 150/80 (103) 95 07/16/17 08:00 90 07/16/17 07:00 90 07/16/17 06:00 92 07/16/17 05:00 98 07/16/17 04:47 98.0 95 18 175/84 (114) 97 07/16/17 04:11 91 07/16/17 03:00 88 07/16/17 02:00 94 07/16/17 01:06 98.6 96 161/74 (103) 94 07/16/17 01:00 96 07/16/17 00:07 88 07/15/17 23:00 90 07/15/17 22:00 88 07/15/17 21:00 96 07/15/17 20:05 91 I/O 07/15/17 07/15/17 07/15/17 07/16/17 07/16/17 07/16/17 07:00 15:00 23:00 07:00 15:00 23:00 Intake Total 3350 ml 100 ml 240 ml 100 ml 480 ml Output Total 900 ml 750 ml 200 ml Balance 2450 ml 100 ml 240 ml -750 ml 100 ml 280 ml Intake Oral 240 ml 480 ml IV Total 3350 ml 100 ml 100 ml Output Urine Total 900 ml 750 ml 200 ml # Voids 3 3 # Bowel Movements 0 2 Result Diagram: 07/16/17 0755 07/16/17 0755 Objective Remarks GENERAL: patient sitting up in bed. Appears comfortable. SKIN: Warm and dry. HEAD: Normocephalic. EYES: No scleral icterus. No injection or drainage. NECK: Supple, trachea midline. No JVD . CARDIOVASCULAR: Regular rate and rhythm without murmurs, gallops, or rubs. RESPIRATORY: Breath sounds equal bilaterally. No accessory muscle use. GASTROINTESTINAL: Abdomen soft, non-tender, nondistended. MUSCULOSKELETAL: No cyanosis, or edema. BACK: Nontender without obvious deformity. No CVA tenderness. A/P Assessment and Plan // Sepsis/UTI Patient tachycardic with elevated lactic acid Patient immunocompromised as last chemotherapy was 3 weeks ago UA significant for occasional bacteria, 17 WBCs, moderate leukocyte esterase and catheterized specimen Aztreonam/vancomycin as patient allergic to penicillin concern for cross- reactivity with cefepime Blood, urine cultures pending Chest x-ray negative for acute disease, personally reviewed Repeat lactic acid within normal limits = Urine with group D enterococcus. Follow-up cultures. Continue antibiotics. //Hyperthyroid state. = TSH 0.005. Likely secondary to supratherapeutic level thyroxine. We will hold levothyroxine. Recommend recheck in 1 week. We'll restart on lower dose of thyroxine at discharge // Endometrial cancer with known metastatic disease Patient has completed chemotherapy, will follow-up as outpatient with Dr. Paz for evaluation of radiation treatments History of chemotherapy-induced anemia, monitor CBC and transfuse as needed = Hemoglobin 9.5 likely decreased from 10.9 due to dilution. Continue to monitor. // History of DVT/PE/supratherapeutic INR INR 4.3 Pharmacy consulted, appreciate assistance for goal INR of 2-3 = INR 3.0, slightly supratherapeutic. Continue to monitor. // Diabetes mellitus Continue home Lantus Sliding scale insulin Monitor blood glucose = Glucose acceptable. Continue to monitor. //CAD Continue home medications FEN Regular diet Electrolytes: monitor and replete prn Coumadin Discharge Planning pending culture sensitivities. Abhishek Gonzalez MD Jul 16, 2017 19:57
[2017-07-16] MEDS: INSULIN DETEMIR 100 UNITS/ML VIAL SQ SCH (21:28)
[2017-07-17] VITALS (12 sets, daily range): BP systolic 137–184; BP diastolic 65–85; PULSE 80–96; RESP 16–18; TEMP 97.6–98.7; O2SAT 95–99
[2017-07-17] MEDS: VANCOMYCIN INJ 1,250 MG in SODIUM CHLOR 0.9% 250 ML INJ 250 ML IV SCH ×3 (00:11→23:10)
[2017-07-17] MEDS: AZTREONAM INJ 2,000 MG in SODIUM CHLORIDE 0.9% INJ 100 ML IV SCH ×3 (02:08→18:23)
[2017-07-17] MEDS: SODIUM CHLOR 0.9% 1000 ML INJ 1,000 ML IV SCH ×3 (04:25→20:10)
[2017-07-17 08:00] LABS: INTERNATIONAL NORMALIZED RATIO 2.4 RATIO; PROTHROMBIN TIME - PATIENT 24.7 SEC (9.8-11.6)
[2017-07-17] MEDS: SODIUM CHLORIDE 0.9% FLUSH 10 ML FLUSH IV FLUSH SCH ×2 (09:00→20:10)
[2017-07-17] MEDS ORDERED: PHARMACY ORDERED LAB ONE (11:45)
[2017-07-17] MEDS ORDERED: LEVO.075 PO (15:29)
[2017-07-17] MEDS ORDERED: MACR100C2 PO (15:29)
--- NOTE | 2017-07-17 15:33 | HHI.FF ---
Face to Face Verification Diagnosis: (1) Uterine cancer (2) UTI (urinary tract infection) Physical Therapy Order: Evaluate and Treat Occupational Therapy Order: Evaluate and Treat Home Health Nursing Order: Nursing assessment with vital signs Level Vial Inspector And Tester Order: To Provide: Long range planning I have seen patient Natasha Valero on 07/17/17. My clinical findings support the need for the requested home health care services because: Limited ability to care for self I certify that my clinical findings support that this patient is homebound because: Unsafe to leave home unassisted Abhishek Gonzalez MD Jul 17, 2017 15:33
--- NOTE | 2017-07-17 15:39 | HHI.PR ---
Subjective Remarks Patient says she is feeling well. Denies any abdominal pain. Denies any dysuria. Denies any chest pain or shortness of breath. Says she feels like leaving the hospital. Objective Vital Signs Date Time Temp Pulse Resp B/P (MAP) Pulse Ox O2 Delivery O2 Flow Rate FiO2 07/17/17 12:00 97.6 86 16 184/79 (114) 96 07/17/17 08:00 98.4 80 16 148/75 (99) 95 07/17/17 06:00 94 07/17/17 05:00 80 07/17/17 04:27 98.2 85 18 163/78 (106) 97 07/17/17 04:04 86 07/17/17 03:00 96 07/17/17 02:00 82 07/17/17 01:00 84 07/17/17 00:14 98.7 90 18 165/76 (105) 99 07/16/17 23:59 92 07/16/17 23:00 90 07/16/17 22:00 92 07/16/17 21:33 98.1 88 19 171/82 (111) 96 07/16/17 21:00 86 07/16/17 20:03 85 07/16/17 19:00 84 07/16/17 16:00 98.4 91 16 155/71 (99) 98 I/O 07/16/17 07/16/17 07/16/17 07/17/17 07/17/17 07/17/17 07:00 15:00 23:00 07:00 15:00 23:00 Intake Total 100 ml 480 ml Output Total 750 ml 200 ml 500 ml Balance -750 ml 100 ml 280 ml -500 ml Intake Oral 480 ml IV Total 100 ml Output Urine Total 750 ml 200 ml 500 ml # Voids 3 # Bowel Movements 2 Result Diagram: 07/16/17 0755 07/16/17 0755 Objective Remarks GENERAL: patient sitting up in bed. Appears comfortable. No change on exam SKIN: Warm and dry. HEAD: Normocephalic. EYES: No scleral icterus. No injection or drainage. NECK: Supple, trachea midline. No JVD . CARDIOVASCULAR: Regular rate and rhythm without murmurs, gallops, or rubs. RESPIRATORY: Breath sounds equal bilaterally. No accessory muscle use. GASTROINTESTINAL: Abdomen soft, non-tender, nondistended. MUSCULOSKELETAL: No cyanosis, or edema. BACK: Nontender without obvious deformity. No CVA tenderness. A/P Assessment and Plan // Sepsis/UTI Patient tachycardic with elevated lactic acid Patient immunocompromised as last chemotherapy was 3 weeks ago UA significant for occasional bacteria, 17 WBCs, moderate leukocyte esterase and catheterized specimen Aztreonam/vancomycin as patient allergic to penicillin concern for cross- reactivity with cefepime Blood, urine cultures pending Chest x-ray negative for acute disease, personally reviewed Repeat lactic acid within normal limits = Urine with group D enterococcus. Follow-up cultures. Continue antibiotics. = Patient is penicillin allergic. Will discharge on Macrobid to complete 10 day course of treatment. //Hyperthyroid state. = TSH 0.005. Likely secondary to supratherapeutic level thyroxine. We will hold levothyroxine. Recommend recheck in 1 week. We'll restart on lower dose of thyroxine at discharge = We will decrease Synthroid dose to 75 mcg daily. Repeat TSH in 1 month. // Endometrial cancer with known metastatic disease Patient has completed chemotherapy, will follow-up as outpatient with Dr. Paz for evaluation of radiation treatments History of chemotherapy-induced anemia, monitor CBC and transfuse as needed = Hemoglobin 9.5 likely decreased from 10.9 due to dilution. Continue to monitor. // History of DVT/PE/supratherapeutic INR INR 4.3 Pharmacy consulted, appreciate assistance for goal INR of 2-3 = INR 3.0, slightly supratherapeutic. Continue to monitor. // Diabetes mellitus Continue home Lantus Sliding scale insulin Monitor blood glucose = Glucose acceptable. Continue to monitor. //CAD Continue home medications /Hypercalcemia. Calcium stable at 11.0. Discussed maintaining adequate hydration, low calcium diet with patient. Follow-up with hematology/oncology as outpatient. FEN Regular diet Electrolytes: monitor and replete prn Coumadin Discharge Planning pending culture sensitivities. Abhishek Gonzalez MD Jul 17, 2017 15:39
--- NOTE | 2017-07-17 15:41 | HHI.DS ---
Discharge Summary Admission Date Jul 15, 2017 at 01:35 Discharge Date: Jul 18, 2017 Admitting Diagnosis sepsis; bacteremia; uti; metastatic uterine CA (1) Hyperthyroidism ICD Code: E05.90 - Thyrotoxicosis, unspecified without thyrotoxic crisis or storm (2) UTI (urinary tract infection) ICD Code: N39.0 - Urinary tract infection, site not specified Status: Acute (3) Hypercalcemia ICD Code: E83.52 - Hypercalcemia Status: Acute Procedures No invasive procedures. 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 The patient reports she has not urinated since yesterday. She also reports a three-week history of increasing weakness. She has chemotherapy-induced anemia and undergoes regular transfusions. Last transfusion was Friday. Per patient's after she receives transfusions she usually feels better however there was no change in her weakness and to some degree the patient feels that it worsened. She endorses subjective fever/chills. Denies chest pain/shortness of breath. No cough. No sore throat. Denies nausea/vomiting/diarrhea CBC/BMP: 07/16/17 0755 07/16/17 0755 Significant Findings Laboratory Tests Test 07/14/17 22:57 07/15/17 01:47 07/16/17 07:55 07/17/17 06:47 Red Blood Count 3.34 MIL/MM3 (4.00-5.30) 2.89 MIL/MM3 (4.00-5.30) Hemoglobin 10.9 GM/DL (11.6-15.3) 9.5 GM/DL (11.6-15.3) Hematocrit 32.1 % (35.0-46.0) 28.2 % (35.0-46.0) Red Cell Distribution Width 19.2 % (11.6-17.2) 19.3 % (11.6-17.2) Platelet Count 109 TH/MM3 (150-450) 101 TH/MM3 (150-450) Monocytes (%) (Auto) 22.8 % (0.0-8.0) 19.2 % (0.0-8.0) Lymphocytes # (Auto) 0.5 TH/MM3 (1.0-4.8) 0.4 TH/MM3 (1.0-4.8) Monocytes # (Auto) 1.0 TH/MM3 (0-0.9) Band Neutrophils % 14 % (0-6) Monocytes % 21 % (0-8) Myelocytes 1 % (0-0) Nucleated Red Blood Cells 1 /100 WBC (0-0) Toxic Vacuolation PRESENT (NONE SEEN) Platelet Estimate LOW (NORMAL) Prothrombin Time 43.0 SEC (9.8-11.6) 30.0 SEC (9.8-11.6) 24.7 SEC (9.8-11.6) Activated Partial Thromboplast Time 35.9 SEC (24.3-30.1) Urine Leukocyte Esterase MOD (NEG) Urine WBC 17 /hpf (0-5) Urine Bacteria OCC /hpf (NONE) Urine Mucus FEW /lpf (OCC) Albumin 2.8 GM/DL (3.4-5.0) Calcium Level 11.8 MG/DL (8.5-10.1) 11.4 MG/DL (8.5-10.1) Alkaline Phosphatase 217 U/L (45-117) Aspartate Amino Transf (AST/SGOT) 62 U/L (15-37) Estimat Glomerular Filtration Rate 85 ML/MIN (>89) Lactic Acid Level 2.2 mmol/L (0.4-2.0) Protein Corrected Calcium 11.9 MG/DL (8.5-10.1) Troponin I LESS THAN 0.02 NG/ML Thyroid Stimulating Hormone 3rd Gen LESS THAN 0.005 uIU/ML Neutrophils (%) (Auto) 71.1 % (16.0-70.0) Creatinine 0.44 MG/DL (0.50-1.00) Random Glucose 71 MG/DL (74-106) Chloride Level 109 MEQ/L (98-107) Test 07/17/17 12:05 Calcium Level 11.0 MG/DL (8.5-10.1) Vancomycin Level Trough 18.8 MCG/ML (5.0-10.0) Imaging Last Impressions Abdomen/Pelvis CT 07/15/17 0000 Signed Impressions: Service Date/Time: Saturday, July 15, 2017 03:42 - CONCLUSION: 1. Progressive numerous coalescing hypodense hepatic masses in this patient with known metastatic uterine carcinoma to the liver. 2. Minimal airspace consolidation of the right lung base, presumably atelectasis. 3. No acute CT abnormality in the abdomen or pelvis. Marquis Cavazos MD Head CT [id number]/[id number] Signed Impressions: Service Date/Time: Friday, July 14, 2017 23:20 - CONCLUSION: 1. Senescent changes with stable right basal ganglia the current chart. 2. No acute intracranial abnormality. 3. Left maxillary sinusitis. Marquis Cavazos MD Chest X-Ray [id number] Signed Impressions: Service Date/Time: Friday, July 14, 2017 23:03 - CONCLUSION: 1. Motion degraded exam without acute abnormality or significant interval change. Marquis Cavazos MD Hospital Course // Sepsis/UTI Patient tachycardic with elevated lactic acid Patient immunocompromised as last chemotherapy was 3 weeks ago UA significant for occasional bacteria, 17 WBCs, moderate leukocyte esterase and catheterized specimen Aztreonam/vancomycin as patient allergic to penicillin concern for cross- reactivity with cefepime Blood, urine cultures pending Chest x-ray negative for acute disease, personally reviewed Repeat lactic acid within normal limits = Urine with group D enterococcus. Follow-up cultures. Continue antibiotics. = Patient is penicillin allergic. Will discharge on Macrobid to complete 10 day course of treatment. //Hyperthyroid state. = TSH 0.005. Likely secondary to supratherapeutic level thyroxine. We will hold levothyroxine. Recommend recheck in 1 week. We'll restart on lower dose of thyroxine at discharge = We will decrease Synthroid dose to 75 mcg daily. Repeat TSH in 1 month. // Endometrial cancer with known metastatic disease Patient has completed chemotherapy, will follow-up as outpatient with Dr. Paz for evaluation of radiation treatments History of chemotherapy-induced anemia, monitor CBC and transfuse as needed = Hemoglobin 9.5 likely decreased from 10.9 due to dilution. Continue to monitor. // History of DVT/PE/supratherapeutic INR INR 4.3 Pharmacy consulted, appreciate assistance for goal INR of 2-3 = INR 3.0, slightly supratherapeutic. Continue to monitor. // Diabetes mellitus Continue home Lantus Sliding scale insulin Monitor blood glucose = Glucose acceptable. Continue to monitor. //CAD Continue home medications /Hypercalcemia. Calcium stable at 11.0. Discussed maintaining adequate hydration, low calcium diet with patient. Follow-up with hematology/oncology as outpatient. FEN Regular diet Electrolytes: monitor and replete prn Coumadin Discharge Planning pending culture sensitivities. Pt Condition on Discharge: Good Discharge Disposition: Discharge Home Discharge Time: > 30 minutes Discharge Instructions DIET: Follow Instructions for: Heart Healthy Diet Activities you can perform: Regular-No Restrictions Follow up Referrals: Oncology/Hematology - 1 Week with Heavenly Valera MD New Orders: TSH 3RD GEN - 2 Weeks New Medications: Nitrofurantoin Monohydrate Macrocrystals (Macrobid) 100 Mg Cap 100 MG PO BID for Infection for 7 Days, #14 CAP 0 Refills Levothyroxine (Synthroid) 75 Mcg Tab 75 MCG PO DAILY@0600 for Thyroid, #30 TAB repeat TSH in 1 month Continued Medications: Insulin Glargine Inj (Lantus Inj) 1,000 Unit/10 Ml Vial 30 UNITS SQ HS for Blood Sugar Management, VIAL 0 Refills Lactobacillus Acidophilus (Probiotic) 1 Cap Cap 1 CAP PO HS for Nutritional Supplement, #90 CAP 0 Refills Tramadol (Tramadol) 50 Mg Tab 50 MG PO Q4H PRN for PAIN, TAB 0 Refills Warfarin (Warfarin) 4 Mg Tab 3 MG PO HS for Blood Clot Prevention, #30 TAB 0 Refills Discontinued Medications: B Complex W/ C (B Complex/Vitamin C) 1 Cap Cap 1 TAB PO HS Levothyroxine (Synthroid) 175 Mcg Tab 175 MCG PO HS for Thyroid, #30 TAB 0 Refills Abhishek Gonzalez MD Jul 17, 2017 15:41
[2017-07-17] MEDS ORDERED: WARFARIN SOD 2 MG TAB PO SCH (16:00)
[2017-07-17] MEDS: INSULIN DETEMIR 100 UNITS/ML VIAL SQ SCH (23:10)
[2017-07-18 00:51] VITALS: BP 159/72; PULSE 82; RESP 16; TEMP 98.8; O2SAT 99
[2017-07-18] MEDS: AZTREONAM INJ 2,000 MG in SODIUM CHLORIDE 0.9% INJ 100 ML IV SCH (01:36)
[2017-07-18 04:18] VITALS: BP 132/56; PULSE 78; RESP 16; TEMP 99.2; O2SAT 100
[2017-07-18 05:27] VITALS: PULSE 79
[2017-07-18 07:34] LABS: INTERNATIONAL NORMALIZED RATIO 2.1 RATIO; PROTHROMBIN TIME - PATIENT 21.6 SEC (9.8-11.6)
[2017-07-18 07:49] LABS: CREATININE 0.35 MG/DL (0.50-1.00)
[2017-07-18 08:00] VITALS: BP 142/80; PULSE 81; RESP 18; TEMP 97.3; O2SAT 97
[2017-07-18] MEDS: SODIUM CHLORIDE 0.9% FLUSH 10 ML FLUSH IV FLUSH SCH (09:00)
[2017-07-18 11:32] VITALS: BP 140/81; PULSE 80; RESP 20; TEMP 98.6; O2SAT 95
[2017-07-18] MEDS ORDERED: PHARMACY ORDERED LAB ONE (11:45)
[2017-07-18 12:00] VITALS: PULSE 93
[2017-07-18] MEDS ORDERED: NITROFURANTOIN MONOHYD MACROCR 100 MG CAP PO SCH (18:00)
== END 2017-07-18 13:53 | disposition home health service (06) | DRG 871 ==
LOC: NEPC 22:23 → NEDA 07-15 01:35 → HCIN 07-15 03:10
PROVIDERS: ADMIT Internal Medicine; ATTEND Internal Medicine
DX: A41.81 Sepsis due to Enterococcus (principal); G93.41 Metabolic encephalopathy; C78.7 Secondary malignant neoplasm of liver and intrahepatic bile duct; D64.81 Anemia due to antineoplastic chemotherapy; D89.9 Disorder involving the immune mechanism, unspecified; N39.0 Urinary tract infection, site not specified; E83.52 Hypercalcemia; C54.1 Malignant neoplasm of endometrium; I10 Essential (primary) hypertension; E11.9 Type 2 diabetes mellitus without complications; I25.10 Atherosclerotic heart disease of native coronary artery without angina pectoris; E03.9 Hypothyroidism, unspecified; M19.041 Primary osteoarthritis, right hand; T45.1X5A Adverse effect of antineoplastic and immunosuppressive drugs, initial encounter; M19.042 Primary osteoarthritis, left hand; E05.80 Other thyrotoxicosis without thyrotoxic crisis or storm; T38.1X5A Adverse effect of thyroid hormones and substitutes, initial encounter; Z79.01 Long term (current) use of anticoagulants; Z79.4 Long term (current) use of insulin; Z86.711 Personal history of pulmonary embolism; Z86.718 Personal history of other venous thrombosis and embolism; Z88.0 Allergy status to penicillin; Z95.1 Presence of aortocoronary bypass graft; Z95.5 Presence of coronary angioplasty implant and graft
CPT/HCPCS: 70450; 71045; 74177; 80048; 80053; 80202; 81001; 82140; 82306; 82310; 82550; 82565; 82652; 82948; 83605; 84443; 84484; 85007; 85025; 85027; 85610; 85730; 87040; 87077; 87086; 87186; 93005; 96365; 96366; J3370; J7030; J7050; Q9967